=== PATIENT | male | born 1965 | race Caucasian/White ===

== ENCOUNTER 2016-05-24 09:26 | Emergency (ER) | payer MEDICAID, OTHER ==
[~2016-05-24] VITALS: Wt 88.0 kg
[~2016-05-24 09:26] MED LIST: ASPI81TA3 PO; LISI-524 PO
[2016-05-24 10:59] LABS: ADD UMIC NO; URINE BILIRUBIN (Dip) NEGATIVE (NEGATIVE); URINE BLOOD (Dip) NEGATIVE (NEGATIVE); URINE COLOR LT. YELLOW (YELLOW); URINE GLUCOSE (Dip) NEGATIVE (NEGATIVE); URINE KETONES (Dip) NEGATIVE (NEGATIVE); URINE LEUKOCYTE ESTERASE (Dip) NEGATIVE (NEGATIVE); URINE NITRITE (Dip) NEGATIVE (NEGATIVE); URINE TOTAL PROTEIN (Dip) NEGATIVE (NEGATIVE); URINE UROBILINOGEN (Dip) 0.2 E.U./dL (0.1-1.0)
[2016-05-24 11:08] LABS: ADD SCAN DIFF NO
[2016-05-24 11:12] LABS: BASOPHILS % 0.3 % (0.0-2.0); EOSINOPHILS # 0.3 10^3/ul (0.0-0.5); EOSINOPHILS % 2.6 % (0.0-7.0); HEMATOCRIT 45.2 % (42.0-52.0); HEMOGLOBIN 15.5 g/dl (14.0-18.0); LYMPHOCYTES # 1.8 10^3/ul (0.8-2.9); LYMPHOCYTES % 15.5 % (15.0-51.0); MEAN CORPUSCULAR HEMOGLOBIN 29.8 pg (29.0-33.0); MEAN CORPUSCULAR HGB CONC 34.3 g/dl (32.0-37.0); MEAN CORPUSCULAR VOLUME 86.9 fl (82.0-101.0); MEAN PLATELET VOLUME 10.3 fl (7.4-10.4); MONOCYTE # 0.8 10^3/ul (0.3-0.9); MONOCYTES % 6.5 % (0.0-11.0); NEUTROPHIL # 8.8 10^3/ul (1.6-7.5); NEUTROPHILS % 74.4 % (39.0-77.0); PLATELET COUNT 267 10^3/UL (140-415); WHITE BLOOD COUNT 11.8 10^3/ul (4.8-10.8)
[2016-05-24 11:24] LABS: ALBUMIN 4.5 g/dl (3.3-4.9); ALBUMIN/GLOBULIN RATIO 1.73; BILIRUBIN,INDIRECT 0.1 mg/dl (0-1.1); BILIRUBIN,TOTAL 0.1 mg/dl (0.2-1.3); CALCIUM 9.2 mg/dl (8.4-10.2); CREATININE 0.83 mg/dl (0.61-1.24); POTASSIUM 4.3 mmol/L (3.5-5.1); TOTAL PROTEIN 7.1 g/dl (6.1-8.1)
[2016-05-24] MEDS ORDERED: SOD CHLORIDE 0.9% 100 ML ONE (12:18)
[2016-05-24] MEDS ORDERED: IOHEXOL 300MG/ML 150 ML BTL ONE (12:18)
--- NOTE | 2016-05-24 13:13 | RADRPT ---
PROCEDURE: CT Abdomen and Pelvis with contrast. CLINICAL INDICATION: Right lower quadrant pain. TECHNIQUE: CT scan of the abdomen and pelvis with contrast was performed on a multi-detector high- resolution CT scanner. The patient was scanned following the uncomplicated intravenous administrati on of 100 cc of Omnipaque 300. Coronal and sagittal reformatted images were obtained from the axial source images. Images were reviewed on a high-resolution PACS workstation. The total exam CTDI equa ls 20.46 mGy and the total exam DLP equals 1177.47 mGy-cm. One or more of the following dose reduction techniques were used: Automated exposure control. Adjustment of the mA and/or kV according to patient size. Use of iterative reconstruction technique. COMPARISON: None. FINDINGS: CT abdomen: The lung bases are clear. The heart size is normal, without pericardial thickening or effusion. Th e liver is normal in size and density . There are multiple cysts throughout the liver. The spleen i s normal in size and homogeneous in density. The stomach is partially collapsed, but is grossly unr emarkable. The pancreas as visualized is normal. The gallbladder and biliary tree are unremarkable and there is no evidence for biliary dilatation. The adrenal glands are symmetric and normal. Markedly enlarged bilateral kidneys with numerous cortical and parapelvic cysts in keeping with poly cystic kidneys. There are several cysts which demonstrate mild hyperdensity measures up to 2 cm in t he upper pole left kidney on image 3 - 39. The aorta is of normal caliber. Aortic vascular calcifications are present. There is no retroperit barboza lymphadenopathy. The tish hepatis region is clear. The bowel and mesentery, as visualized, are equally unremarkable. CT pelvis: The small bowel loops situated within the pelvis are unremarkable. There is a normal appendix. The u rinary bladder is minimally distended. The pelvic sidewalls and inguinal regions are clear. The si gmoid colon and rectum are remarkable for sigmoid diverticulosis. No mass, lymphadenopathy, or free fluid is seen. No acute inflammation is seen. The bladder is normal. There is mild anterolisthesis of L5 on S1 related to bilateral pars defects. The surrounding osseous structures are unremarkable. No osteolytic or osteoblastic lesion is detected. IMPRESSION: 1. Normal appendix. 2. Markedly enlarged bilateral kidneys replaced by numerous cysts in keeping with polycystic kidney disease. Some of the cysts are dense likely representing proteinaceous/hemorrhagic cyst; however c annot confirm on this single phase study. 3. Multiple liver cysts. 4. Spondylolisthesis/spondylosis at L5-S1. RPTAT: BB .Kirsten Landaverde MD, MD Date Time Electronically viewed and signed by .Kirsten Landaverde MD, on 05/24/2016 13:12 .O/
[2016-05-24] MEDS ORDERED: TRAM50TA2 PO (13:16)
[2016-05-24] MEDS ORDERED: POLY17PO6 PO (13:16)
--- NOTE | 2016-05-24 13:24 | ERD ---
ER Documentation Chief Complaint Date/Time DATE: 05/24/16 TIME: 13:19 Chief Complaint rectal bleed (red) on wiping and in bowl HPI This 42-year-old male complains of intermittent bright red blood per rectum pain with bowel movements over the last week. Denies fevers, vomiting. Some pain in the right side of his abdomen. Denies any palpable lesions in his rectum previous history. The blood is primarily with bowel movements. Patient has a history of poorly controlled hypertension and has not taken his medications in several months. Denies any chest pain or shortness of breath. ROS All systems reviewed and are negative except as per history of present illness. Medications Home Meds Active Scripts Benazepril Hcl* (Lotensin*) 20 Mg Tablet, 20 MG PO DAILY, #30 TAB Prov:KAREL CHAUDHARI MD 05/24/16 Tramadol HCl (Tramadol HCl) 50 Mg Tablet, 50 MG PO Q4 Y for PAIN, #15 TAB Prov:KAREL CHAUDHARI MD 05/24/16 Polyethylene Glycol* (Miralax*) 17 Gm Powd.pack, 17 GM PO DAILY, #30 Prov:KAREL CHAUDHARI MD 05/24/16 Aspirin (Aspirin) 81 Mg Chew, 81 MG PO DAILY, #30 TAB.CHEW Prov:MELANY ALEMAN 09/13/14 Lisinopril* (Zestril*) 10 Mg Tab, 10 MG PO DAILY, #30 3 Refills Prov:MELANY ALEMAN 09/13/14 Allergies Allergies: Coded Allergies: No Known Allergy (Unverified , 09/11/14) PMhx/Soc History of Surgery: Yes (heart catheterization, hernia repair.) Anesthesia Reaction: No Hx Neurological Disorder: No Hx Cardiac Disorders: No Hx Psychiatric Problems: No Hx Miscellaneous Medical Probl: No (HTN, pre-diabetic) Hx Alcohol Use: Yes (last drink 14 months ago) Hx Substance Use: Yes (cocaine use x1 year ending [id number]) Hx Tobacco Use: Yes (12-14 cigarettes daily) Smoking Status: Current every day smoker Physical Exam Vitals Vital Signs Date Time Temp Pulse Resp B/P Pulse Ox O2 Delivery O2 Flow Rate FiO2 05/24/16 13:40 209/122 05/24/16 09:31 97.7 87 20 174/94 98 Physical Exam Const: [] Head: Atraumatic Eyes: Normal Conjunctiva ENT: Normal External Ears, Nose and Mouth. Neck: Full range of motion..~ No meningismus. Resp: Clear to auscultation bilaterally Cardio: Regular rate and rhythm, no murmurs Abd: Soft, non tender, non distended. Normal bowel sounds Skin: No petechiae or rashes Back: No midline or flank tenderness Ext: No cyanosis, or edema Neur: Awake and alert Psych: Normal Mood and Affect Result Diagram: 05/24/16 1035 05/24/16 1035 Results 24 hrs Laboratory Tests Test 05/24/16 10:30 05/24/16 10:35 Urine Color LT. YELLOW Urine Clarity CLEAR Urine pH 5.0 Urine Specific Cameron 1.025 Urine Ketones NEGATIVE Urine Nitrite NEGATIVE Urine Bilirubin NEGATIVE Urine Urobilinogen 0.2 E.U./dL Urine Leukocyte Esterase NEGATIVE Urine Hemoglobin NEGATIVE Urine Glucose NEGATIVE% Urine Total Protein NEGATIVE White Blood Count 11.810^3/ul Red Blood Count 5.2010^6/ul Hemoglobin 15.5g/dl Hematocrit 45.2% Mean Corpuscular Volume 86.9fl Mean Corpuscular Hemoglobin 29.8pg Mean Corpuscular Hemoglobin Concent 34.3g/dl Red Cell Distribution Width 13.0% Platelet Count 98347^3/UL Mean Platelet Volume 10.3fl Neutrophils % 74.4% Lymphocytes % 15.5% Monocytes % 6.5% Eosinophils % 2.6% Basophils % 0.3% Nucleated Red Blood Cells % 0.0/100WBC Neutrophils # 8.810^3/ul Lymphocytes # 1.810^3/ul Monocytes # 0.810^3/ul Eosinophils # 0.310^3/ul Basophils # 0.010^3/ul Nucleated Red Blood Cells # 0.010^3/ul Sodium Level 140mmol/L Potassium Level 4.3mmol/L Chloride Level 107mmol/L Carbon Dioxide Level 26mmol/L Anion Gap 11 Blood Urea Nitrogen 17mg/dl Creatinine 0.83mg/dl Glucose Level 113mg/dl Calcium Level 9.2mg/dl Total Bilirubin 0.1mg/dl Direct Bilirubin 0.00mg/dl Indirect Bilirubin 0.1mg/dl Aspartate Amino Transf (AST/SGOT) 24IU/L Alanine Aminotransferase (ALT/SGPT) 35IU/L Alkaline Phosphatase 89IU/L Total Protein 7.1g/dl Albumin 4.5g/dl Globulin 2.60g/dl Albumin/Globulin Ratio 1.73 Lipase 35U/L Current Medications Medications (Trade) Dose Ordered Sig/Lynne Route PRN Reason Start Time Stop Time Status Last Admin Dose Admin IV Flush 10 ml 10 ml STK-MED ONCE .ROUTE 05/24/16 12:18 05/24/16 12:19 DC 05/24/16 12:27 Sodium Chloride (NS) 100 ml @ ud STK-MED ONCE .ROUTE 05/24/16 12:18 05/24/16 12:19 DC 05/24/16 12:32 Iohexol (Omnipaque 300mg/ ml) 150 ml STK-MED ONCE .ROUTE 05/24/16 12:18 05/24/16 12:19 DC 05/24/16 12:33 Nicardipine HCl (Cardene) 30 mg ONCE ONCE PO 05/24/16 14:00 05/24/16 14:01 05/24/16 13:43 Benazepril HCl (Lotensin) 20 mg ONCE ONCE PO 05/24/16 14:00 05/24/16 14:01 Procedures/MDM CBC shows white blood cell count 11.8, CMP is normal. Urine is negative. The uncertain cause of symptoms a CT abdomen pelvis with IV contrast was performed showed multiple renal cysts and hepatic cysts consistent with polycystic kidney disease. There is no acute findings per the radiologist. Patient was stable throughout the ED course. Patient presents with bright red blood per rectum which appears stable with no evidence of anemia, acute abdomen, obstruction. Right-sided pain could be due to hemorrhagic cyst. Patient was not aware he had any history of cystic kidney disease. Patient will be provided with resort reports and instruction to follow-up his primary doctor and consider nephrology for further evaluation. Return for fevers, vomiting, new or worsening symptoms otherwise she will be treated with tramadol and stool softeners. The patient was stable with no new complaints during the ER course. Clinically, there is no current evidence to suggest meningitis, sepsis, acute abdomen, pneumonia, acute coronary syndrome, pulmonary embolism, or any other emergent condition appearing to require further evaluation or hospitalization. The patient should certainly return for any new or worsening symptoms per the aftercare instructions. They should otherwise follow-up with her primary care doctor for reevaluation this week. Patient's blood pressure was noted to be elevated at triage as well as prior to discharge. Patient was given Cardene p.o. and Lotensin 20 mg by mouth. Patient will refer to nephrology and will be resumed on Lotensin 20 mg per day. Signs or symptoms do not suggest any current endorgan damage. Departure Diagnosis: Primary Impression: Rectal hemorrhage Condition: Stable Patient Instructions: Rectal Bleed, Stable [facility] Usted se ortiz hecho un examen mdico de control que le indica que no est en yordy condicin que requiera tratamiento urgente en el Departamento de Emergencia. Un estudio ms profundo y el tratamiento de squires condicin pueden esperar sin ningn riesgo hasta que usted sea atendida/o en el consultorio de squires mdico o yordy cl alia. Es responsabilidad suya arreglar yordy helene para el seguimiento del peter. MANEJO DE CONDICIONES NO URGENTES EN EL FUTURO 1) Si usted tiene un mdico de atencin primaria: Usted debera llamar a squires mdico de atencin primaria antes de venir al departamento de emergencia. Despus de las horas de consultorio, squires doctor o squires asociado/a est disponible por telfono. El mdico o enfermero de kaity en el servicio telefnico puede asesorarle por gema medio para atender el problema, o peter contrario se puede programar yordy helene. 2) Si usted no tiene un mdico de atencin primaria: Llame al mdico o clnica de referencia que aparece abajo dalila las horas de consultorio para hacer yordy helene para que le vean. CLINICAS: [facility] [phone] [facility] [phone] [facility] 915 [phone] [facility] [phone] [place] [id number] [phone] [facility]. [phone] [address] Additional Instructions: HAY MUCHO CYSTES EN RINONES/ HIGADO PER NO HAY ENFERMA EMERGENCIA O NUEVA. VAMOS A TRATAR PARA ESTRENEMIENTO. Cheque otro vez con squires doctor primario en el proximo chaudhary or regresa para mas o nueva simptomas. KAREL CHAUDHARI MD May 24, 2016 13:24
[2016-05-24] MEDS ORDERED: BENA20TA65 PO (13:43)
[2016-05-24] MEDS ORDERED: BENAZEPRIL 20 MG TAB PO ONE (14:00)
[2016-05-24] MEDS ORDERED: NICARDipine HCL 30 MG CAPSULE PO ONE (14:00)
[2016-05-24 14:02] VITALS: BP 182/112
== END 2016-05-24 14:29 | disposition home or self-care (01) ==
LOC: FTE 09:26
DX: K62.5 Hemorrhage of anus and rectum (principal); I10 Essential (primary) hypertension; F17.210 Nicotine dependence, cigarettes, uncomplicated
CPT/HCPCS: 36415; 74177; 80053; 81003; 83690; 85025; Q9967; Z7502; Z7610

== ENCOUNTER 2018-02-06 10:55 | Inpatient (IN) | payer MEDICAID, OTHER ==
[~2018-02-06] VITALS: Ht 154.9 cm; Wt 88.8 kg
[~2018-02-06 10:55] MED LIST changes: +ASPI-831 PO; -ASPI81TA3 PO; +BENA20TA65 PO; +POLY17PO6 PO; +TRAM50TA2 PO
[2018-02-06] MEDS ORDERED: SOD CHLORIDE 0.9% 1,000 ML IV STA (11:29)
[2018-02-06] MEDS ORDERED: ASPIRIN 325 MG TAB PO STA (11:29)
[2018-02-06] MEDS ORDERED: NICARDipine HCL 30 MG CAPSULE PO ONE ×2 (11:30→12:30)
--- NOTE | 2018-02-06 11:32 | ERD ---
ER Documentation Chief Complaint Chief Complaint ELEVATED BP, HEADACHE, DIZZINESS, NAUSEA HPI This is a 52-year-old male who is here for hypertension and left-sided face arm and leg weakness and tingling onset yesterday morning around 7 AM. Patient ran out of his blood pressure meds. He is also complaining of diffuse mild headache with dizziness. No chest pain no shortness of breath. There is visual change, swallowing change or speech change. ROS All systems reviewed and are negative except as per history of present illness. Medications Home Meds Active Scripts Benazepril Hcl* (Lotensin*) 20 Mg Tablet, 20 MG PO DAILY, #30 TAB Prov:KAREL CHAUDHARI MD 05/24/16 Tramadol HCl (Tramadol HCl) 50 Mg Tablet, 50 MG PO Q4 PRN for PAIN, #15 TAB Prov:KAREL CHAUDHARI MD 05/24/16 Polyethylene Glycol* (Miralax*) 17 Gm Powd.pack, 17 GM PO DAILY, #30 Prov:KAREL CHAUDHARI MD 05/24/16 Aspirin (Aspirin) 81 Mg Chew, 81 MG PO DAILY, #30 TAB.CHEW Prov:MELANY ALEMAN 09/13/14 Lisinopril* (Zestril*) 10 Mg Tab, 10 MG PO DAILY, #30 3 Refills Prov:MELAYN ALEMAN 09/13/14 Allergies Allergies: Coded Allergies: No Known Allergy (Unverified , 02/06/18) PMhx/Soc History of Surgery: Yes (heart catheterization, hernia repair.) Anesthesia Reaction: No Hx Neurological Disorder: No Hx Cardiac Disorders: No Hx Psychiatric Problems: No Hx Miscellaneous Medical Probl: No (HTN, pre-diabetic) Hx Alcohol Use: Yes (last drink 14 months ago) Hx Substance Use: Yes (cocaine use x1 year ending [id number]) Hx Tobacco Use: Yes (12-14 cigarettes daily) FmHx Family History: No coronary disease Physical Exam Vitals Vital Signs Date Temp Pulse Resp B/P (MAP) Pulse Ox O2 O2 Flow FiO2 Time Delivery Rate 02/06/18 79 16 134/100 98 Room Air 13:54 (111) 02/06/18 188/129 13:01 (148) 02/06/18 76 18 188/129 98 Room Air 12:36 (148) 02/06/18 98.6 94 18 227/132 97 10:58 (163) Physical Exam Const: Well-developed, well-nourished Head: Atraumatic, normocephalic Eyes: Normal Conjunctiva, PERRLA, EOMI, normal sclera, no nystagmus ENT: Normal External Ears, Nose and Mouth, moist mucus membranes. Neck: Full range of motion. No meningismus, no lymphadenopathy. Resp: Clear to auscultation bilaterally, no wheezing, rhonchi, rales Cardio: Regular rate and rhythm, no murmurs, S1 S2 present Abd: Soft, non tender x 4, non distended. Normal bowel sounds, no guarding or rebound, no pulsitile abdominal masses or bruits Skin: No petechiae or rashes, no ecchymosis , no maculopapular rash Back: No midline or flank tenderness Ext: No cyanosis, or edema, FROM x 4, normal inspection, neurovascul laisha intact x 4 Neur: Awake and alert, left arm and leg subjective heaviness with decreased sensation, face as well Psych: Normal Mood and Affect Result Diagram: 02/06/1892902/06/18929 Results 24 hrs Laboratory Tests Test 02/06/18 05:40 02/06/18 09:30 Urine Opiates Screen Negative Urine Barbiturates Negative Urine Amphetamines Screen Negative Urine Benzodiazepines Screen Negative Urine Cocaine Screen Negative Urine Cannabinoids Negative White Blood Count 11.1 10^3/ul Red Blood Count 5.47 10^6/ul Hemoglobin 15.9 g/dl Hematocrit 47.4 % Mean Corpuscular Volume 86.7 fl Mean Corpuscular Hemoglobin 29.1 pg Mean Corpuscular Hemoglobin Concent 33.5 g/dl Red Cell Distribution Width 12.9 % Platelet Count 251 10^3/UL Mean Platelet Volume 10.1 fl Immature Granulocytes % 0.500 % Neutrophils % 77.6 % Lymphocytes % 13.8 % Monocytes % 6.1 % Eosinophils % 1.5 % Basophils % 0.5 % Nucleated Red Blood Cells % 0.0 /100WBC Immature Granulocytes # 0.060 10^3/ul Neutrophils # 8.6 10^3/ul Lymphocytes # 1.5 10^3/ul Monocytes # 0.7 10^3/ul Eosinophils # 0.2 10^3/ul Basophils # 0.1 10^3/ul Nucleated Red Blood Cells # 0.0 10^3/ul Prothrombin Time 13.2 Sec Prothrombin Time Ratio 1.0 INR International Normalized Ratio 0.99 Activated Partial Thromboplast Time 34.9 Sec Sodium Level 143 mmol/L Potassium Level 4.1 mmol/L Chloride Level 105 mmol/L Carbon Dioxide Level 26 mmol/L Anion Gap 12 Blood Urea Nitrogen 14 mg/dl Creatinine 0.91 mg/dl Est Glomerular Filtrat Rate mL/min > 60 mL/min Glucose Level 134 mg/dl Hemoglobin A1c 5.8 % Calcium Level 9.1 mg/dl Total Bilirubin 0.2 mg/dl Direct Bilirubin 0.00 mg/dl Indirect Bilirubin 0.2 mg/dl Aspartate Amino Transf (AST/SGOT) 25 IU/L Alanine Aminotransferase (ALT/SGPT) 23 IU/L Alkaline Phosphatase 93 IU/L Troponin I < 0.012 ng/ml Total Protein 7.7 g/dl Albumin 4.4 g/dl Globulin 3.30 g/dl Albumin/Globulin Ratio 1.33 Triglycerides Level 353 mg/dl Cholesterol Level 235 mg/dl LDL Cholesterol, Calculated 131 mg/dl HDL Cholesterol 33 mg/dl Cholesterol/HDL Ratio 7.1 RATIO Current Medications Medications Dose Sig/Lynne Start Time Status Last (Trade) Ordered Route PRN Stop Time Admin Dose Reason Admin Nicardipine 30 mg ONCE ONCE 02/06/18 DC 02/06/18 HCl PO 11:30 11:57 (Cardene) 02/06/18 11:31 Sodium 1,000 ml @ Q1H STAT 02/06/18 DC 02/06/18 Chloride 1,000 mls/hr IV 11:29 11:56 02/06/18 12:28 Aspirin 325 mg ONCE STAT 02/06/18 DC 02/06/18 (Aspirin) PO 11:29 11:56 02/06/18 11:32 Nicardipine 30 mg ONCE ONCE 02/06/18 DC 02/06/18 HCl PO 12:30 12:50 (Cardene) 02/06/18 12:31 Procedures/MDM EKG: Rate/Rhythm: Normal sinus rhythm heart rate 74 with LVH QRS, ST, QT: NORMAL SC, QRS, QT] Impression: Abnormal EKG PROCEDURE: CT Brain without contrast. CLINICAL INDICATION: Stroke TECHNIQUE: CT scan of the brain was performed on a multidetector high- resolution CT scan. Axial imaging was obtained of the brain without contrast administration. Coronal and sagittal reformatted images were obtained from the axial source images. Standard CT scan of the head without contrast protocols were performed. The total exam CTDI equals 38.54 mGy and the total exam DLP equals 554.95 mGy-c m. One or more of the following dose reduction techniques were used: - Automated exposure control. - Adjustment of the mA and/or kV according to patient size. Use of iterative reconstruction technique. Dicom images are available COMPARISON: MR brain 09/11/[address] head 09/11/2014 FINDINGS: No change of the 6 x 5 x 3 cm retrocerebellar cystic mass consistent with an arachnoid cyst. No other intracranial masses. Ventricular system and peripheral CSF spaces are otherwise unremarkable and consistent with the patient's age. No evidence of intracranial hemorrhages. No midline shift. The hare-white matter differentiation is unremarkable. The bones of the calvarium are intact. Visu alized paranasal sinuses and mastoids are unremarkable. IMPRESSION: 1. No significant change. 2. Again noted is a retrocerebellar arachnoid cyst. No other intracranial masses. 3. No evidence of intracranial hemorrhages. 4. No midline shift. Addendum: Dr. Mejia was telephoned this results on 02/06/2018 at 1215 hours. RPTAT:AAJJ Physician Lucita Date Time Electronically viewed and signed by Physician Lucita on 02/06/2018 12:22 BM/ CC: SANDEEP MEJIA DO [id number] Patient is not a TPA candidate because of duration of onset was at 7 AM yesterday and says he woke with symptoms. The patient is having hypertensive symptoms of left-sided arm and leg numbness and heaviness. His blood pressure is elevated and is been treated here with Cardene p.o. x2. Patient has been admitted for hypertensive control and strokelike symptoms to the left side. Critical Care Time: 30 minutes Treatments/Evaluations: Close monitoring and treatment of unstable vital signs, cardiorespiratory, and neurologic status, while maintaining tight balance of fluid, respiratory, and cardiac interventions. This time includes discussing the case with the patient and the patient's family. This time does not include all procedures stated elsewhere in this record. This time also includes reviewing old records, labs and radiological studies. This time includes examining and re- examining the patient. Additionally, this time also includes arranging care with admitting and consulting physicians. Departure Diagnosis: Primary Impression: Hypertensive crisis Additional Impression: CVA (cerebral vascular accident) CVA mechanism: unspecified Qualified Codes: I63.9 - Cerebral infarction, unspecified Condition: Stable SANDEEP MEJIA DO Feb 06, 2018 11:32
--- NOTE | 2018-02-06 15:29 | HP ---
Date/Time of Note Date/Time of Note DATE: 02/06/18 TIME: 15:29 Assessment/Plan VTE Prophylaxis SCD applied (from Nsg): Yes Pharmacological prophylaxis: NA/contraindicated Pharm contraindication: other (CVA rule out) Lines/Catheters IV Catheter Type (from Nrsg): Peripheral IV Assessment/Plan Assessment/Plan 1. Hypertensive emergency - Patient has been noncompliant with medications at home given he ran out in march - With numbness and tingling left face, UE, and LE. Will rule out CVA - Will allow for permissive HTN up to 220/110 for the next 24 hours. PRNs if exceed allowed BP - Will check TSH 2. Left sided numbness - CT head negative for acute issues - Out of TPA window since sx started over 24 hours ago - Will allow for permissive HTN <220/110 - statin and aspirin - Will order MRI/MRA head, carotid doppler and ECHO - Neurology consultation placed for further recommendations 3. HLD - TG and Chol elevated - on statin and will need diet modification after discharge - will start on fish oil as well prior to d/c 4. Tobacco abuse - smoking cessation provided - nicotine patch while inhouse 5. Headache - supportive care - CT head negative 6. Diet - Cardiac 7. DVT ppx - SCD 8. GI ppx - PPI 9. Code status - Full code 10. Disposition - Admit to telemetry for CVA workup Result Diagram: 02/06/18 0930 02/06/18 0930 Results 24hrs Laboratory Tests Test 02/06/18 05:40 02/06/18 09:30 Urine Opiates Screen Negative Urine Barbiturates Negative Urine Amphetamines Screen Negative Urine Benzodiazepines Screen Negative Urine Cocaine Screen Negative Urine Cannabinoids Negative White Blood Count 11.1 H Red Blood Count 5.47 Hemoglobin 15.9 Hematocrit 47.4 Mean Corpuscular Volume 86.7 Mean Corpuscular Hemoglobin 29.1 Mean Corpuscular Hemoglobin Concent 33.5 Red Cell Distribution Width 12.9 Platelet Count 251 Mean Platelet Volume 10.1 Immature Granulocytes % 0.500 H Neutrophils % 77.6 H Lymphocytes % 13.8 L Monocytes % 6.1 Eosinophils % 1.5 Basophils % 0.5 Nucleated Red Blood Cells % 0.0 Immature Granulocytes # 0.060 H Neutrophils # 8.6 H Lymphocytes # 1.5 Monocytes # 0.7 Eosinophils # 0.2 Basophils # 0.1 Nucleated Red Blood Cells # 0.0 Prothrombin Time 13.2 Prothrombin Time Ratio 1.0 INR International Normalized Ratio 0.99 Activated Partial Thromboplast Time 34.9 Sodium Level 143 Potassium Level 4.1 Chloride Level 105 Carbon Dioxide Level 26 Anion Gap 12 Blood Urea Nitrogen 14 Creatinine 0.91 Est Glomerular Filtrat Rate mL/min > 60 Glucose Level 134 Hemoglobin A1c 5.8 Calcium Level 9.1 Total Bilirubin 0.2 Direct Bilirubin 0.00 Indirect Bilirubin 0.2 Aspartate Amino Transf (AST/SGOT) 25 Alanine Aminotransferase (ALT/SGPT) 23 Alkaline Phosphatase 93 Troponin I < 0.012 Total Protein 7.7 Albumin 4.4 Globulin 3.30 H Albumin/Globulin Ratio 1.33 Triglycerides Level 353 H Cholesterol Level 235 H LDL Cholesterol, Calculated 131 HDL Cholesterol 33 Cholesterol/HDL Ratio 7.1 HPI/ROS Admit Date/Time Admit Date/Time 02/06/18 1600 Hx of Present Illness 52 yo M with PMH HTN and HLD presented to ED complaining of dizziness, left sided weakness and tingling from face to leg, nausea, and severe headache since yesterday at 7am. Patient states he ran out of his BP medication due to insurance and last took medications in March. Patient was evaluated in ED and CT scan was performed with no acute abnormalities. He was given medications for BP control but weakness did not resolve. Patient was still complaining of headache with dizziness and abdominal discomfort with associated nausea. Patient did admit to mild chest discomfort which was worse with deep inhalation. Admits to nonproductive cough. Denies any LOC, palpitations, constipation, diarrhea, or right sided weakness or tingling. ROS All 12 systems reviewed and pertinent positives as per HPI. All others nega tive. Constitutional: nausea; No chills, No fatigue Eyes: discharge, visual change ENT: No congestion Respiratory: cough, shortness of breath; No sputum, No wheezing Cardiovascular: chest pain, lightheadedness; No edema, No palpitations Gastrointestinal: pain; No constipation, No diarrhea, No nausea, No vomiting Genitourinary: dysuria; No flank pain Musculoskeletal: no complaints Skin: No laceration, No rash Neurologic: dizziness, headache, other (left sided numbness and tingling) Endocrine: no complaints Lymphatic: no complaints Psychological: nl mood/affect Immunologic: no complaints PMH/Family/Social Past Medical History Medical History: high cholesterol, hypertension Medications Current Medications Ondansetron HCl (Zofran Inj) 4 mg ER BRIDGE PRN IV NAUSEA AND/OR VOMITING; Start 02/06/18 at 15:30; Stop 02/07/18 at 15:29 Acetaminophen (Tylenol Tab) 650 mg ER BRIDGE PRN PO MILD PAIN(1-3)OR ELEVATED TEMP; Start 02/06/18 at 15:30; Stop 02/07/18 at 15:29 Coded Allergies: No Known Allergy (Unverified , 02/06/18) Past Surgical History Past Surgical Hx: other (hernia repair) Family History Significant Family History: no pertinent family hx Social History Alcohol Use: none Smoking Status: Current every day smoker (8-10 cigarettes daily) Drug Use: cocaine (past history) Exam/Review of Systems Vital Signs Vitals Vital Signs Date Temp Pulse Resp B/P (MAP) Pulse Ox O2 O2 Flow FiO2 Time Delivery Rate 02/06/18 79 16 134/100 98 Room Air 13:54 (111) 02/06/18 98.6 10:58 Exam Exam General: distress secondary to headache. answering questions appropriately. HEENT: NC/AT. PERRL. EOM intact Chest: nontender to palpation CVS: S1, S2, regular rate and rhythm. no murmurs Lungs: Clear to auscultation bilaterally. no wheezing or rhonchi Abd: soft, mildly tender to palpation, nondistended. +BS all quadrants. no rebound or guarding Ext: moving all extremities. no cyanosis, clubbing or edema Neuro: CN 2-12 intact. motor strength 5/5 UE and LE bilaterally. sensation diminished left side of face, left arm and left leg. normal in right Skin: no rashes or lesions appreciated. MIKE GARVEY MD Feb 06, 2018 15:29
[2018-02-06] MEDS ORDERED: ONDANSETRON 4 MG INJ IV PRN ×2 (15:30)
[2018-02-06] MEDS ORDERED: ACETAMINOPHEN 325 MG TAB PO PRN ×2 (15:30)
[2018-02-06] MEDS ORDERED: NACL 0.9% 3 ML SYG IV SCH (15:30)
[2018-02-06] MEDS ORDERED: MAGNESIUM HYDROXIDE 30ML CUP PO PRN (15:30)
[2018-02-06] MEDS ORDERED: hydrALAzine 20 MG INJ IV PRN (15:30)
[2018-02-06] MEDS ORDERED: traMADol 50 MG TAB PO PRN (15:30)
[2018-02-06] MEDS ORDERED: NITROGLYCERIN (SL) 0.4 MG TAB SL PRN (15:30)
[2018-02-06] MEDS ORDERED: DOCUSATE SODIUM 100 MG CAP PO PRN (15:30)
[2018-02-06 16:15] VITALS: PULSE 76
[2018-02-06 16:30] VITALS: BP 180/86; PULSE 70; RESP 20; Ht 154.9 cm; Wt 88.8 kg
[2018-02-06] MEDS ORDERED: LORAZEPAM 4 MG/ML VIAL IV PRN (16:30)
[2018-02-06] MEDS ORDERED: MECLIZINE 25 MG TAB PO PRN (16:30)
[2018-02-06] MEDS ORDERED: LABETALOL HCL 20MG INJ IV PRN (16:30)
[2018-02-06] MEDS: NICOTINE (14 MG/24 HR) PATCH TRANSDERM SCH (16:51)
--- NOTE | 2018-02-06 18:34 | NUR ---
EOSS Pt is alert and oriented x 4 , ambulates with steady gait. With headache given Tylenol, numbness on left face, left arm,left leg. SR on the monitor . MRI pending
[2018-02-06 20:00] VITALS: BP 171/96; PULSE 69; RESP 18
[2018-02-06] MEDS: ATORVASTATIN 40 MG TAB PO SCH (20:04)
[2018-02-06 23:35] VITALS: PULSE 63
[2018-02-06 23:48] VITALS: BP 192/115
[2018-02-07] VITALS (10 sets, daily range): BP systolic 138–184; BP diastolic 82–116; PULSE 55–80; RESP 16–20
[2018-02-07] MEDS: PANTOPRAZOLE (EC) 40 MG TAB PO SCH (06:02)
[2018-02-07] MEDS ORDERED: AMLODIPINE 5 MG TAB PO SCH (09:00)
[2018-02-07] MEDS ORDERED: ENOXAPARIN 40 MG/0.4 ML SYG SC SCH (09:00)
[2018-02-07] MEDS ORDERED: BENAZEPRIL 20 MG TAB PO SCH (09:00)
[2018-02-07] MEDS: NICOTINE (14 MG/24 HR) PATCH TRANSDERM SCH (09:26)
[2018-02-07] MEDS: POLYETHYLENE GLYCOL 17 GM PACKET PO SCH (09:26)
[2018-02-07] MEDS: ASPIRIN 81 MG TAB PO SCH (09:26)
[2018-02-07] MEDS ORDERED: KETOROLAC 30 MG INJ IV STA (09:40)
--- NOTE | 2018-02-07 12:54 | PN ---
Date/Time of Note Date/Time of Note DATE: 02/07/18 TIME: 12:54 Assessment/Plan VTE Prophylaxis Risk score (from [facility])>0 risk: 1 SCD applied (from [facility]): No SCD contraindicated: patient refusal Pharmacological prophylaxis: NA/contraindicated Pharm contraindication: bleeding Lines/Catheters IV [facility] [place] Lock Urinary Cath still in place: No Assessment/Plan Assessment/Plan 1. Hypertensive emergency - BP 130-140 without medications - Improving numbness and tingling left face, UE, and LE 2. Left sided numbness, rule out CVA - CT head negative for acute issues and Carotids without stenosis - MRI pending - statin and aspirin - Neurology consultation placed for further recommendations 3. HLD - TG and Chol elevated - on statin and will need diet modification after discharge - will start on fish oil as well prior to d/c 4. Tobacco abuse - smoking cessation provided - nicotine patch while inhouse 5. Headache - supportive care - CT head negative 6. Disposition - Awaiting MRI results - PT/OT on board for evaluation Result Diagram: 02/07/18 0500 02/07/18 0500 Results 24hrs Laboratory Tests Test 02/06/18 17:26 02/07/18 05:00 Urine Color STRAW Urine Clarity CLEAR Urine pH 7.0 Urine Specific [place] 1.010 Urine Ketones NEGATIVE Urine Nitrite NEGATIVE Urine Bilirubin NEGATIVE Urine Urobilinogen NEGATIVE Urine Leukocyte Esterase NEGATIVE Urine Hemoglobin NEGATIVE Urine Glucose NEGATIVE Urine Total Protein NEGATIVE White Blood Count 10.5 Red Blood Count 5.15 Hemoglobin 15.1 Hematocrit 44.8 Mean Corpuscular Volume 87.0 Mean Corpuscular Hemoglobin 29.3 Mean Corpuscular Hemoglobin Concent 33.7 Red Cell Distribution Width 13.0 Platelet Count 231 Mean Platelet Volume 10.2 Immature Granulocytes % 0.700 H Neutrophils % 64.0 Lymphocytes % 23.8 Monocytes % 7.6 Eosinophils % 3.4 Basophils % 0.5 Nucleated Red Blood Cells % 0.0 Immature Granulocytes # 0.070 H Neutrophils # 6.7 Lymphocytes # 2.5 Monocytes # 0.8 Eosinophils # 0.4 Basophils # 0.1 Nucleated Red Blood Cells # 0.0 Sodium Level 140 Potassium Level 3.9 Chloride Level 106 Carbon Dioxide Level 27 Anion Gap 7 Blood Urea Nitrogen 15 Creatinine 0.85 Est Glomerular Filtrat Rate mL/min > 60 Glucose Level 112 Calcium Level 8.4 Magnesium Level 2.2 Subjective 24 Hr Interval Summary Free Text/Dictation Patient states he still with headache but numbness of left side has improved. No acute overnight events. Exam/Review of Systems Vital Signs Vitals Vital Signs Date Temp Pulse Resp B/P (MAP) Pulse Ox O2 O2 Flow FiO2 Time Delivery Rate 02/07/18 98.6 67 18 138/100 95 11:09 (113) 02/07/18 Room Air 04:00 Intake and Output 02/06/18 02/06/18 02/07/18 1515:00 23:00 07:00 IntakeIntake Total 150 ml 400 ml OutputOutput Total 300 ml BalanceBalance -150 ml 400 ml Exam General: mild distress secondary to headache CVS: S1, S2, regular rate and rhythm. no murmurs Lungs: Clear to auscultation bilaterally. no wheezing or rhonchi Abd: soft, nontender to palpation, nondistended. +BS all quadrants. no rebound or guarding Ext: moving all extremities. no cyanosis, clubbing or edema Neuro: CN 2-12 intact. motor strength 5/5 UE and LE bilaterally. sensation diminished left side of face, left arm and left leg. normal in right Skin: no rashes or lesions appreciated. Medications Medications Current Medications Aspirin (Aspirin) 81 mg DAILY PO Last administered on 02/07/18at 09:26; Admin Dose 81 MG; Start 02/07/18 at 09:00 Polyethylene Glycol (Miralax) 17 gm DAILY PO Last administered on 02/07/18at 09:26; Admin Dose 17 GM; Start 02/07/18 at 09:00 Tramadol HCl (Ultram) 50 mg Q4 PRN PO PAIN; Start 02/06/18 at 15:30 Hydralazine HCl (Apresoline) 10 mg Q4H PRN IV SBP >220/110; Start 02/06/18 at 15:30 IV Flush (NS 3 ml) 3 ml PER PROTOCOL IV ; Start 02/06/18 at 15:30 Ondansetron HCl (Zofran Inj) 4 mg Q6H PRN IV NAUSEA AND/OR VOMITING; Start 02/06/18 at 15:30 Nitroglycerin (Nitroglycerin (Sl Tab) 0.4 Mg) 1 tab Q5M PRN SL CHEST PAIN; Start 02/06/18 at 15:30 Acetaminophen (Tylenol Tab) 650 mg Q6H PRN PO PAIN LEVEL 1-3 OR FEVER Last administered on 02/06/18at 16:46; Admin Dose 650 MG; Start 02/06/18 at 15:30 Docusate Sodium (Colace) 100 mg Q12H PRN PO CONSTIPATION; Start 02/06/18 at 15:30 Magnesium Hydroxide (Milk Of Mag) 30 ml DAILY PRN PO CONSTIPATION; Start 02/06/18 at 15:30 Pantoprazole (Protonix Tab) 40 mg DAILY@06 PO Last administered on 02/07/18at 06:02; Admin Dose 40 MG; Start 02/07/18 at 06:00 Labetalol HCl (Labetalol) 10 mg Q4H PRN IV SBP >220/110; Start 02/06/18 at 16:30 Lorazepam (Ativan) 1 mg ONCE PRN IV prior to MRI; Start 02/06/18 at 16:30; Stop 02/07/18 at 16:29 Atorvastatin Calcium (Lipitor) 40 mg HS PO Last administered on 02/06/18at 20:04; Admin Dose 40 MG; Start 02/06/18 at 21:00 Meclizine HCl (Antivert) 25 mg TID PRN PO dizziness; Start 02/06/18 at 16:30 Nicotine (Nicoderm 14 Mg/ 24hr) 1 patch DAILY TRANSDERM Last administered on 02/07/18at 09:26; Admin Dose 1 PATCH; Start 02/06/18 at 17:00 MIKE GARVEY MD Feb 07, 2018 12:54
[2018-02-07] MEDS ORDERED: DIPHENHYDRAMINE 50 MG INJ IV PRN (14:30)
--- NOTE | 2018-02-07 14:46 | CONS ---
Assessment/Plan Assessment/Plan Assessment/Plan 52 yo M with hx of HTN, HLD, medication noncompliance and other comorbidities who p/w headache, L hemiparesis and hemisensory loss... for which neurology is consulted. Most clinically concerning for stroke. Hypertensive urgency is a diagnosis of exclusion. Complicated migraine is less likely. CTH is without acute intracranial pathology. CUS is normal. P: Await MRI, MRA H/N for further characterization Await echo Cont ASA/statin pending the above Permissive HTN up to 220/110 pending the MRI results Cont medical management per primary PT/OT as necessary Will follow clinically Result Diagram: 02/07/18 0500 02/07/18 0500 Results 24hrs Laboratory Tests Test 02/06/18 17:26 02/07/18 05:00 Urine Color STRAW Urine Clarity CLEAR Urine pH 7.0 Urine Specific [place] 1.010 Urine Ketones NEGATIVE Urine Nitrite NEGATIVE Urine Bilirubin NEGATIVE Urine Urobilinogen NEGATIVE Urine Leukocyte Esterase NEGATIVE Urine Hemoglobin NEGATIVE Urine Glucose NEGATIVE Urine Total Protein NEGATIVE White Blood Count 10.5 Red Blood Count 5.15 Hemoglobin 15.1 Hematocrit 44.8 Mean Corpuscular Volume 87.0 Mean Corpuscular Hemoglobin 29.3 Mean Corpuscular Hemoglobin Concent 33.7 Red Cell Distribution Width 13.0 Platelet Count 231 Mean Platelet Volume 10.2 Immature Granulocytes % 0.700 H Neutrophils % 64.0 Lymphocytes % 23.8 Monocytes % 7.6 Eosinophils % 3.4 Basophils % 0.5 Nucleated Red Blood Cells % 0.0 Immature Granulocytes # 0.070 H Neutrophils # 6.7 Lymphocytes # 2.5 Monocytes # 0.8 Eosinophils # 0.4 Basophils # 0.1 Nucleated Red Blood Cells # 0.0 Sodium Level 140 Potassium Level 3.9 Chloride Level 106 Carbon Dioxide Level 27 Anion Gap 7 Blood Urea Nitrogen 15 Creatinine 0.85 Est Glomerular Filtrat Rate mL/min > 60 Glucose Level 112 Calcium Level 8.4 Magnesium Level 2.2 Consultation Date/Type/Reason Admit Date/Time 02/06/18 1600 Type of Consult Neurology Reason for Consultation eval for stroke Requesting Provider: MIKE GARVEY MD Date/Time of Note DATE: 02/07/18 TIME: 14:46 Hx of Present Illness This is a 52 yo M with hx of HTN, HLD, medication noncompliance and other comorbidities who presented to the ED with c/o dizzines, L sided weakness and tingling, nausea and headache. History was obtained from both pt and chart review. It is elsewhere noted: Hx of Present Illness 52 yo M with PMH HTN and HLD presented to ED complaining of dizziness, left sided weakness and tingling from face to leg, nausea, and severe headache since yesterday at 7am. Patient states he ran out of his BP medication due to insurance and last took medications in March. Patient was evaluated in ED and CT scan was performed with no acute abnormalities. He was given medications for BP control but weakness did not resolve. Patient was still complaining of headache with dizziness and abdominal discomfort with associated nausea. Patien t did admit to mild chest discomfort which was worse with deep inhalation. Admits to nonproductive cough. Denies any LOC, palpitations, constipation, diarrhea, or right sided weakness or tingling. negative unless noted otherwise in HPI Exam/Review of Systems Vital Signs Vitals Vital Signs Date Temp Pulse Resp B/P (MAP) Pulse Ox O2 O2 Flow FiO2 Time Delivery Rate 02/07/18 75 12:55 02/07/18 98.6 18 138/100 95 11:09 (113) 02/07/18 Room Air 04:00 Intake and Output 02/06/18 02/06/18 02/07/18 1414:59 22:59 06:59 IntakeIntake Total 150 ml 400 ml OutputOutput Total 300 ml BalanceBalance -150 ml 400 ml Exam PE: Gen Appearance: No Apparent Distress HEENT: Normocephalic Cardiovascular: Regular rate Lungs: Clear bilaterally Abdomen: Soft Extremities: Dry NE: The patient was alert and oriented.. Language was normal. Fund of knowledge was normal. Pupils were equal and reactive to light. There was no afferent pupillary defect. Visual marquez were normal. Funduscopic examination was limited. Extra-ocular movements were full. Ptosis was absent. There was no nystagmus. Facial sensation was normal. Face was symmetric with normal strength. Hearing was intact. Palate movements were normal. Neck strength was normal. There was normal tongue bulk and speed of movement. Tone was normal. Muscle bulk was normal. I did not see fasciculations. Arms and legs were strong to confrontation, though slightly weaker on the L. Vibration sensation and sensation to light touch was diminished on the L. Temperature and pinprick sensation was normal. Rapid alternating movements were normal. There was no dysmetria. There was no intention tremor. Gait was deferred due to bedrest. Arm and leg reflexes were 2+ and symmetric. Miller's sign was absent. Plantar responses were flexor. Medications Medications Current Medications Aspirin (Aspirin) 81 mg DAILY PO Last administered on 02/07/18at 09:26; Admin Dose 81 MG; Start 02/07/18 at 09:00 Polyethylene Glycol (Miralax) 17 gm DAILY PO Last administered on 02/07/18at 09:26; Admin Dose 17 GM; Start 02/07/18 at 09:00 Tramadol HCl (Ultram) 50 mg Q4 PRN PO PAIN; Start 02/06/18 at 15:30 Hydralazine HCl (Apresoline) 10 mg Q4H PRN IV SBP >220/110; Start 02/06/18 at 15:30 IV Flush (NS 3 ml) 3 ml PER PROTOCOL IV ; Start 02/06/18 at 15:30 Ondansetron HCl (Zofran Inj) 4 mg Q6H PRN IV NAUSEA AND/OR VOMITING; Start 02/06/18 at 15:30 Nitroglycerin (Nitroglycerin (Sl Tab) 0.4 Mg) 1 tab Q5M PRN SL CHEST PAIN; Start 02/06/18 at 15:30 Acetaminophen (Tylenol Tab) 650 mg Q6H PRN PO PAIN LEVEL 1-3 OR FEVER Last administered on 02/06/18at 16:46; Admin Dose 650 MG; Start 02/06/18 at 15:30 Docusate Sodium (Colace) 100 mg Q12H PRN PO CONSTIPATION; Start 02/06/18 at 15:30 Magnesium Hydroxide (Milk Of Mag) 30 ml DAILY PRN PO CONSTIPATION; Start 02/06/18 at 15:30 Pantoprazole (Protonix Tab) 40 mg DAILY@06 PO Last administered on 02/07/18at 06:02; Admin Dose 40 MG; Start 02/07/18 at 06:00 Labetalol HCl (Labetalol) 10 mg Q4H PRN IV SBP >220/110; Start 02/06/18 at 16:30 Lorazepam (Ativan) 1 mg ONCE PRN IV prior to MRI; Start 02/06/18 at 16:30; Stop 02/07/18 at 16:29 Atorvastatin Calcium (Lipitor) 40 mg HS PO Last administered on 02/06/18at 20:04; Admin Dose 40 MG; Start 02/06/18 at 21:00 Meclizine HCl (Antivert) 25 mg TID PRN PO dizziness; Start 02/06/18 at 16:30 Nicotine (Nicoderm 14 Mg/ 24hr) 1 patch DAILY TRANSDERM Last administered on 02/07/18 09:26; Admin Dose 1 PATCH; Start 02/06/18 at 17:00 Diphenhydramine HCl (Benadryl) 25 mg Q4 PRN IV ITCHING Last administered on 02/07/18 14:24; Admin Dose 25 MG; Start 02/07/18 at 14:30 Past Medical History reviewed Medical History: high cholesterol, hypertension Medications Current Medications Aspirin (Aspirin) 81 mg DAILY PO Last administered on 02/07/18 09:26; Admin Dose 81 MG; Start 02/07/18 at 09:00 Polyethylene Glycol (Miralax) 17 gm DAILY PO Last administered on 02/07/18 09:26; Admin Dose 17 GM; Start 02/07/18 at 09:00 Tramadol HCl (Ultram) 50 mg Q4 PRN PO PAIN; Start 02/06/18 at 15:30 Hydralazine HCl (Apresoline) 10 mg Q4H PRN IV SBP >220/110; Start 02/06/18 at 15:30 IV Flush (NS 3 ml) 3 ml PER PROTOCOL IV ; Start 02/06/18 at 15:30 Ondansetron HCl (Zofran Inj) 4 mg Q6H PRN IV NAUSEA AND/OR VOMITING; Start 02/06/18 at 15:30 Nitroglycerin (Nitroglycerin (Sl Tab) 0.4 Mg) 1 tab Q5M PRN SL CHEST PAIN; Start 02/06/18 at 15:30 Acetaminophen (Tylenol Tab) 650 mg Q6H PRN PO PAIN LEVEL 1-3 OR FEVER Last administered on 02/06/18at 16:46; Admin Dose 650 MG; Start 02/06/18 at 15:30 Docusate Sodium (Colace) 100 mg Q12H PRN PO CONSTIPATION; Start 02/06/18 at 15:30 Magnesium Hydroxide (Milk Of Mag) 30 ml DAILY PRN PO CONSTIPATION; Start at 15:30 Pantoprazole (Protonix Tab) 40 mg DAILY@06 PO Last administered on 02/07/18at 06:02; Admin Dose 40 MG; Start 02/07/18 at 06:00 Labetalol HCl (Labetalol) 10 mg Q4H PRN IV SBP >220/110; Start 02/06/18 at 16:30 Lorazepam (Ativan) 1 mg ONCE PRN IV prior to MRI; Start 02/06/18 at 16:30; Stop 02/07/18 at 16:29 Atorvastatin Calcium (Lipitor) 40 mg HS PO Last administered on 02/06/18at 20:04; Admin Dose 40 MG; Start 02/06/18 at 21:00 Meclizine HCl (Antivert) 25 mg TID PRN PO dizziness; Start 02/06/18 at 16:30 Nicotine (Nicoderm 14 Mg/ 24hr) 1 patch DAILY TRANSDERM Last administered on 02/07/18at 09:26; Admin Dose 1 PATCH; Start 02/06/18 at 17:00 Diphenhydramine HCl (Benadryl) 25 mg Q4 PRN IV ITCHING Last administered on 02/07/18at 14:24; Admin Dose 25 MG; Start 02/07/18 at 14:30 Allergies: Coded Allergies: avocado (Verified Allergy, Unknown, 02/07/18) banana (Verified Allergy, Unknown, 02/07/18) broccoli (Verified Allergy, Unknown, 02/07/18) carrot (Verified Allergy, Unknown, 02/07/18) melon (Verified Allergy, Unknown, 02/07/18) orange (Verified Allergy, Unknown, 02/07/18) watermelon (Verified Allergy, Unknown, 02/07/18) Past Surgical History reviewed Past Surgical Hx: other (hernia repair) Social History reviewed Alcohol Use: none Smoking Status: Current some day smoker Drug Use: cocaine (past history) FALGUNI HUBBARD NP Feb 07, 2018 14:46
--- NOTE | 2018-02-07 16:28 | RADRPT ---
Echocardiogram Report Patient Name: RIMA ROWAN Gender: Male Date: 1965 Study Date: 07-Feb-2018 Quality Control Representative: Aly Joshi [facility] Location: [address] Ref. Physician: MIKE GARVEY Quality: Adequate Procedures: Transthoracic echocardiogram with complete 2D, M-Mode, and doppler examination. Indications: Evaluate Left Ventricular function. 2D/M Mode Doppler Measurement Value Normal Ranges Measurement Value Normal Ranges LVIDd 2D 4.4 3.5 - 5.6 cm AV Peak [place] 1.4 m/sec LVIDs 2D 2.9 2.1 - 4.1 cm AV Peak PG 8.0 mmHg LVPWd 2D 1.1 0.6 - 1.1 cm LVOT Peak [place] 1.1 m/sec IVSd 2D 1.1 0.6 - 1.1 cm LVOT Peak PG 5.0 mmHg AoR Diam 2D 3.4 2.0 - 3.7 cm MV E Peak [place] 0.5 m/sec LA/Ao 2D 1 0 - 1 MV A Peak [place] 0.6 m/sec LA Dimen 2D 3.0 2.3 - 4.0 cm MV E/A 0.8 MV Decel Time 201 msec Lat E` Devon 0.1 m/sec Lateral E/E` 6.4 Med E` [place] 0.1 m/sec MV E/A 0.8 TR Peak [place] 2.8 m/sec TR Peak PG 32.0 mmHg RVSP 35.0 mmHg Findings Left Ventricle: Normal left ventricular systolic function. Normal left ventricular cavity size. Left ventricular wall thickness upper limits of normal. Ejection fraction is visually estimated at 60 %. Tissue Doppler/Mitral Doppler indices are consistent with impaired relaxation (Stage I diastolic dysfunction). Right Ventricle: Normal right ventricular size. Normal right ventricular systolic function. Left Atrium: The left atrium is normal in size. Right Atrium: The right atrium is normal in size. Mitral Valve: Mild mitral leaflet calcification. Mild mitral annular calcification. Trace mitral regurgitation. Aortic Valve: No significant aortic stenosis or insufficiency. Aortic cusps appear mildly calcified. Trace aortic valve regurgitation. Tricuspid Valve: Normal appearance of the tricuspid valve. Estimated peak PA systolic pressure 35 mmHg. There is mild tricuspid regurgitation. Pulmonic Valve: Pulmonic valve not well visualized. There is trace pulmonic regurgitation. Pericardium: Normal pericardium with no significant pericardial effusion. Aorta: Normal aortic root. IVC: Normal size and normal respiratory collapse consistent with normal right atrial pressure. Conclusions Normal left ventricular systolic function. Normal left ventricular cavity size. Left ventricular wall thickness upper limits of normal. Ejection fraction is visually estimated at 60 %. Tissue Doppler/Mitral Doppler indices are consistent with impaired relaxation (Stage I diastolic dysfunction). Mild mitral leaflet calcification. Mild mitral annular calcification. Trace mitral regurgitation. No significant aortic stenosis or insufficiency. Aortic cusps appear mildly calcified. Trace aortic valve regurgitation. Normal appearance of the tricuspid valve. Estimated peak PA systolic pressure 35 mmHg. There is mild tricuspid regurgitation. Pulmonic valve not well visualized. There is trace pulmonic regurgitation. Electronically Signed By: Abraham Vazquez 07-Feb-2018 16:27:49 -0800 Patient Name: RIMA ROWAN Study Date: 07-Feb-[id number]
--- NOTE | 2018-02-07 16:37 | NUR ---
Pending MRI. Spoke to MRI dept. Stated that the patient is on stand by because of maintenance of the machine.
--- NOTE | 2018-02-07 20:02 | NUR ---
Nursing Note: Spoke to Yisel from radiology. Per Yisel, MRI machine is still not working and pt will have to have MRI done in the morning.
[2018-02-07] MEDS: ATORVASTATIN 40 MG TAB PO SCH (21:15)
[2018-02-08] VITALS (9 sets, daily range): BP systolic 166–184; BP diastolic 80–98; PULSE 58–80; RESP 18–20
--- NOTE | 2018-02-08 00:20 | NUR ---
Nursing Note: Notified Dr. Ortiz that pt has a BP of 184/[address] Kidd's notes allow for permissive HTN for first 24 hours, but pt has been here for more than 24 hours. Per MD leave BP for now. Will continue to monitor.
[2018-02-08] MEDS: PANTOPRAZOLE (EC) 40 MG TAB PO SCH (06:06)
--- NOTE | 2018-02-08 06:36 | NUR ---
EOSS: Pt resting comfortably in stable condition. Pt a/o X4 and on room air. VS stable. Will endorse to oncoming RN.
[2018-02-08] MEDS: ASPIRIN 81 MG TAB PO SCH (08:38)
[2018-02-08] MEDS: NICOTINE (14 MG/24 HR) PATCH TRANSDERM SCH (08:39)
[2018-02-08] MEDS: POLYETHYLENE GLYCOL 17 GM PACKET PO SCH (08:39)
--- NOTE | 2018-02-08 09:01 | PN ---
Date/Time of Note Date/Time of Note DATE: 02/08/18 TIME: 09:01 Assessment/Plan VTE Prophylaxis Risk score (from Ns)>0 risk: 1 SCD applied (from Ns): Yes Pharmacological prophylaxis: NA/contraindicated Pharm contraindication: bleeding Lines/Catheters IV C[facility]ter Type (from [facility] Saline Lock Urinary Cath still in place: No Assessment/Plan Assessment/Plan 1. Hypertensive emergency- resolved - Per Neurology, continue permissive hypertension until results of MRI return - Patient states numbness and tingling left face, UE, and LE has resolved 2. Left sided numbness, rule out CVA - CT head negative for acute issues and Carotids without stenosis - MRI pending - statin and aspirin - Neurology consultation appreciated and recommending to continue permissive HTN until MRI resulted - PT/OT recommending FWW 3. HLD - TG and Chol elevated - on statin and will need diet modification after discharge - will start on fish oil as well prior to d/c 4. Tobacco abuse - smoking cessation provided - nicotine patch while inhouse 5. Dizziness - Will give Antivert TID 6. Disposition - Awaiting MRI results Result Diagram: 02/07/18 0500 02/07/18 0500 Subjective 24 Hr Interval Summary Free Text/Dictation Patient states he's not experiencing more prominent dizziness with ambulation. States numbness has improved. No acute overnight events. Exam/Review of Systems Vital Signs Vitals Vital Signs Date Temp Pulse Resp B/P (MAP) Pulse Ox O2 O2 Flow FiO2 Time Delivery Rate 02/08/18 68 08:00 02/08/18 97.8 18 177/80 96 Room Air 07:51 (112) Intake and Output 02/07/18 02/07/18 02/08/18 1515:00 23:00 07:00 IntakeIntake Total 1000 ml 500 ml BalanceBalance 1000 ml 500 ml Exam General: mild distress secondary to dizziness CVS: S1, S2, regular rate and rhythm. no murmurs Lungs: Clear to auscultation bilaterally. no wheezing or rhonchi Abd: soft, nontender to palpation, nondistended. no rebound or guarding Ext: moving all extremities. no cyanosis, clubbing or edema Neuro: CN 2-12 intact. motor strength 5/5 UE and LE bilaterally. Skin: no rashes or lesions appreciated. Medications Medications Current Medications Aspirin (Aspirin) 81 mg DAILY PO Last administered on 02/08/18at 08:38; Admin Dose 81 MG; Start 02/07/18 at 09:00 Polyethylene Glycol (Miralax) 17 gm DAILY PO Last administered on 02/08/18at 08:39; Admin Dose 17 GM; Start 02/07/18 at 09:00 Tramadol HCl (Ultram) 50 mg Q4 PRN PO PAIN; Start 02/06/18 at 15:30 Hydralazine HCl (Apresoline) 10 mg Q4H PRN IV SBP >220/110; Start 02/06/18 at 15:30 IV Flush (NS 3 ml) 3 ml PER PROTOCOL IV ; Start 02/06/18 at 15:30 Ondansetron HCl (Zofran Inj) 4 mg Q6H PRN IV NAUSEA AND/OR VOMITING; Start 02/06/18 at 15:30 Nitroglycerin (Nitroglycerin (Sl Tab) 0.4 Mg) 1 tab Q5M PRN SL CHEST PAIN; Start 02/06/18 at 15:30 Acetaminophen (Tylenol Tab) 650 mg Q6H PRN PO PAIN LEVEL 1-3 OR FEVER Last administered on 02/06/18at 16:46; Admin Dose 650 MG; Start 02/06/18 at 15:30 Docusate Sodium (Colace) 100 mg Q12H PRN PO CONSTIPATION; Start 02/06/18 at 15:30 Magnesium Hydroxide (Milk Of Mag) 30 ml DAILY PRN PO CONSTIPATION; Start 02/06/18 at 15:30 Pantoprazole (Protonix Tab) 40 mg DAILY@06 PO Last administered on 02/08/18at 06:06; Admin Dose 40 MG; Start 02/07/18 at 06:00 Labetalol HCl (Labetalol) 10 mg Q4H PRN IV SBP >220/110; Start 02/06/18 at 16:30 Atorvastatin Calcium (Lipitor) 40 mg HS PO Last administered on 02/07/18at 21:15; Admin Dose 40 MG; Start 02/06/18 at 21:00 Meclizine HCl (Antivert) 25 mg TID PRN PO dizziness; Start 02/06/18 at 16:30 Nicotine (Nicoderm 14 Mg/ 24hr) 1 patch DAILY TRANSDERM Last administered on 02/08/18at 08:39; Admin Dose 1 PATCH; Start 02/06/18 at 17:00 Diphenhydramine HCl (Benadryl) 25 mg Q4 PRN IV ITCHING Last administered on 02/07/18at 14:24; Admin Dose 25 MG; Start 02/07/18 at 14:30 MIKE GARVEY MD Feb 08, 2018 09:01
--- NOTE | 2018-02-08 10:00 | NUR ---
PT EVALUATION Therapy day number 1 Evaluation Start Time 10:00 Evaluation End Time 11:00 Evaluation Total Time 60 min Subjective Current complaint of pain Pain Scale NUMERIC Pain Intensity 7 (0-10) Patient Stated Goal for Pain Relief 0 (0-10) Pain Level Comment headache Pre Treatment Vital Signs Stable No - see PT Notes- elevated BP Exercise Assessment Label Bilat Lower Extremity Exercise Type Active ROM Additional Exercise Comments ankle pumps and heel slides Supine to Sit Contact Guard Assist Transfer Sit to Stand Ability Minimum Assist Bed Mobility Sit to Supine Minimum Assist Sitting Tolerance 10 min Additional Mobility Comments c/o of dizzinesss with mobility Gait Assist Levels Minimum Assist Assistive Devices Front Wheel Walker Ambulation Distance 10 feet Additional Gait Comments unable to progress with gait due to dizziness Weight Bearing Assessment Label Bilat Lower Extremity Weight Bearing Status Weight Bearing as Gissel Static Sitting Balance Fair plus Dynamic Sitting Balance Fair Standing Static Balance Fair Dynamic Standing Balance Fair minus Additional Balance Assessments Comments complained of dizziness with standing Safety Judgement Fair Activity Tolerance Poor Post Treatment Pain Intensity 7 0-10 Additional Post Treatment Comment see PT NOTES Total Minutes 60 Total Units 4 PT Technical Record Comment PT EVALUATION: M.D.order received for PT eval with [facility]. Consulted with INA Johnson and reports patient does have high BP and to monitor. Patient is alert and oriented x 4 and agreed to PT. Complained of a headache 7/10 pain level. HPI: 52 yo M with hx of HTN, HLD, medication noncompliance and other comorbidities who p/w headache, L hemiparesis and hemisensory loss. Admitted for further eval and tx. PLOF: Active working, rides his bicycle to work. Lives in an apt. and takes care of his 15 year old daughter. Independent with all ADL's. CLOF: Patient supine BP: 189/95 mmHg, MD: 64 bpm. Noted slight weakness on Left UE/LE. Bed mobility and Transfers: [place] Silver Gait trained at bed side with FWW and unable to progress due to increased dizziness. Took BP after gait 202/124/mmHg. BTB with [place] Johnson notified of elevated BP and stated that she will notify M.D. Call light at side, bed alarm activated, all needs met. Recommendations: Will benefit from PT 6x/wk for 1 week to increase functional independence with mobility. Patient needing FWW at the moment due to very unsteady with gait. Will determine need for DME pending progress with PT.
--- NOTE | 2018-02-08 10:45 | NUR ---
OT EVAL: Pt is a 52 yo M with PMH HTN and HLD presented to ED complaining of dizziness, left sided weakness and tingling from face to leg, nausea, and severe headache since yesterday at 7am. Patient states he ran out of his BP medication due to insurance and last took medications in March. Patient was evaluated in ED and CT scan was performed with no acute abnormalities. He was given medications for BP control but weakness did not resolve. Patient was still complaining of headache with dizziness and abdominal discomfort with associated nausea. Patient did admit to mild chest discomfort which was worse with deep inhalation. Admits to nonproductive cough. Denies any LOC, palpitations, constipation, diarrhea, or right sided weakness or tingling. PLOF: Pt lives with his daughter in as single story home. Pt was independent with all ADL's and ambulated without any DME prior to hospitalization. CLOF: RN cleared pt for OT services. Pt received supine in bed and agreeable to tx stating 7/10 pain in his head and slight tingling in in left arm. Pt demonstrated RUE AROM WFL: MMT of 4/5 and LUE AROM WFL: MMT of 3/5. Pt reported slight numbness in RUE. Pt demonstrated h/g , UB/LB dressing and bathing independently. Pt performed STS and functional mob with SBA due to dizziness. Pt left supine in bed with all needs met. RN notified. No skilled OT warranted as pt is independent with ADL's and SBA for functional mob and transfers due to dizziness. D/C home when medically cleared by .
--- NOTE | 2018-02-08 13:36 | CONS ---
Assessment/Plan Assessment/Plan Hospital Course A: 52 yo M with hx of HTN, HLD, medication noncompliance and other comorbidities who p/w headache, L hemiparesis and hemisensory loss... for which neurology is consulted. Most clinically concerning for stroke. Hypertensive urgency is a diagnosis of exclusion. Complicated migraine is less likely. CTH is without acute intracranial pathology. CUS is normal. Echo is unrevealing. P: Await MRI, MRA H/N for further characterization Cont ASA/statin pending the above Permissive HTN up to 220/110 through today pending the MRI results Cont medical management per primary PT/OT as necessary Will follow clinically Result Diagram: 02/07/18 0500 02/07/18 0500 Consultation Date/Type/Reason Admit Date/Time Feb 06, 2018 at 15:17 Type of Consult Neurology Reason for Consultation eval for stroke Requesting Provider: MIKE GARVEY MD Date/Time of Note DATE: 02/08/18 TIME: 13:36 24 HR Interval Summary Free Text/Dictation Pt has c/o continued mild headache, L sided numbness but states that his L sided weakness has resolved. Exam Vital Signs Vitals Vital Signs Date Temp Pulse Resp B/P (MAP) Pulse Ox O2 O2 Flow FiO2 Time Delivery Rate 02/08/18 80 12:00 02/08/18 98.1 20 166/82 96 Room Air 11:17 (110) Intake and Output 02/07/18 02/07/18 02/08/18 1515:00 23:00 07:00 IntakeIntake Total 1000 ml 500 ml BalanceBalance 1000 ml 500 ml Exam PE: Gen Appearance: No Apparent Distress HEENT: Normocephalic Cardiovascular: Regular rate Lungs: Clear bilaterally Abdomen: Soft Extremities: Dry NE: The patient was alert and oriented.. Language was normal. Fund of knowledge was normal. Pupils were equal and reactive to light. There was no afferent pupillary defect. Visual marquez were normal. Funduscopic examination was limited. Extra-ocular movements were full. Ptosis was absent. There was no nystagmus. Facial sensation was normal. Face was symmetric with normal strength. Hearing was intact. Palate movements were normal. Neck strength was normal. There was normal tongue bulk and speed of movement. Tone was normal. Muscle bulk was normal. I did not see fasciculations. Arms and legs were strong to confrontation, though slightly weaker on the L. Vibration sensation and sensation to light touch was diminished on the L. Temperature and pinprick sensation was normal. Rapid alternating movements were normal. There was no dysmetria. There was no intention tremor. Gait was deferred due to bedrest. Arm and leg reflexes were 2+ and symmetric. Miller's sign was absent. Plantar responses were flexor. FALGUNI HUBBARD NP Feb 08, 2018 13:36 ADAM SCHNEIDER Feb 08, 2018 18:54
--- NOTE | 2018-02-08 15:36 | NUR ---
CM NOTE RECEIVED AN ORDER FOR DME: FWW, CM NOTIFIED LEAD CM AND FWW WAS PROVIDED TO PT VIA [employer] [facility].
--- NOTE | 2018-02-08 19:05 | NUR ---
EOSS: Patient stable, not in distress. Denies any pain/discomfort. All needs attended well. Continued monitoring as plan of care.
--- NOTE | 2018-02-08 19:07 | NUR ---
MRI/MRA Brain still pending, as per technical business analyst, patient is scheduled tonight at 2215. Endorsed to next shift.
[2018-02-08] MEDS: MECLIZINE 25 MG TAB PO SCH (21:17)
[2018-02-08] MEDS: ATORVASTATIN 40 MG TAB PO SCH (21:17)
[2018-02-09] VITALS (14 sets, daily range): BP systolic 126–171; BP diastolic 81–96; PULSE 63–100; RESP 17–20
--- NOTE | 2018-02-09 03:45 | NUR ---
Nursing Note: Notified Dr. Ortiz that pt's MRI shows possible aneurysm. Per MD inform Dr. Roberts. Called Dr. Roberts and left a message. Will continue to monitor.
[2018-02-09] MEDS: PANTOPRAZOLE (EC) 40 MG TAB PO SCH (05:56)
--- NOTE | 2018-02-09 06:36 | NUR ---
EOSS: Pt resting comfortably in stable condition. Pt a/o X4 and on room air. VS stable. Will endorse to oncoming RN.
[2018-02-09] MEDS: POLYETHYLENE GLYCOL 17 GM PACKET PO SCH (08:03)
[2018-02-09] MEDS: MECLIZINE 25 MG TAB PO SCH ×3 (08:03→20:45)
[2018-02-09] MEDS: ASPIRIN 81 MG TAB PO SCH (08:03)
[2018-02-09] MEDS: NICOTINE (14 MG/24 HR) PATCH TRANSDERM SCH (08:04)
--- NOTE | 2018-02-09 08:30 | NUR ---
PT NOTE Therapy day number 2 Subjective Denies pain Pain Scale NUMERIC Pain Intensity 0 (0-10) Patient Stated Goal for Pain Relief 0 (0-10) Pain Level Comment denies pain Pre Treatment Vital Signs Stable No - SEE PT NOTE- elevated BP Transfer Training Start Time 08:30 Supine to Sit Modified Independent Transfer Sit to Stand Ability Supervised Bed Mobility Sit to Supine Modified Independent Transfer Training End Time 08:42 Total Transfer Training Time 12 min (8-127) Gait Training Start Time 08:42 Gait Assist Levels Supervised Assistive Devices None Ambulation Distance 150 feet Additional Gait Comments steady pace/gait, reciprocal pattern, no LOB/buckling Gait Training End Time 09:10 Total Gait Training Treatment Time 28 min (8-127) Stair Climbing Ability Stand by Assist Number of Stairs 12 Stairs Additional Stairs Assist Comments 12 steps x 1 using 1 rail, step to pattern w/VCs for sequence Static Sitting Balance Good Dynamic Sitting Balance Good Standing Static Balance Good Dynamic Standing Balance Fair plus Additional Balance Assessments Comments no AD Safety Judgement Good Activity Tolerance Good Post Treatment Pain Intensity 0 0-10 Variance Documentation SEE BELOW AND PT NOTE Total Treament Time 40 min (8-127) Total Minutes 40 Total Units 3 PT Technical Record Comment PT NOTE S: Pt stated, "I feel fine, in fact better than yesterday." Pt speaks [place]. Agreeable for PT and cleared per KULWANT Hernandez. O: Received pt in R side-lying, asleep. VCs to rouse. V/S pre tx 170/96 HR 74, asymptomatic. Bed mobility w/HOB slightly elevated Nancy. Applied gait belt at EOB. STS w/no AD Supervised. Gait training performed w/no AD 150' Supervised. Noted steady pace/gait, reciprocal pattern, and no LOB/buckling. Stairs training performed afterwards 12 steps x 1 using 1 rail, step to pattern w/VCs for sequence. Performed w/fair demonstration. Assisted pt back to room BTB. Reassessed V/S at EOB 175/120, asymptomatic. Retook V/S within 1 minute 162/113. Sit>supine Nancy. Reassessed V/S in semi-fowlers 174/90, asymptomatic. Left pt in comfort position, call light/phone within reach, bed alarmed, and all needs met. KULWANT Hernandez informed of pt's status and BP readings throughout tx. A: Good tolerance to tx. Pt showed no signs of distress or SOB during or after tx. No c/o dizziness, pain, or nausea throughout tx. Pt significantly improved w/bed mobility, transfers, and gait assistance/distance compared to previous tx. V/S monitored throughout tx and pt remained asymptomatic. P: Continue POC and progress as tolerated.
--- NOTE | 2018-02-09 08:33 | PN ---
Date/Time of Note Date/Time of Note DATE: 02/09/18 TIME: 08:33 Assessment/Plan VTE Prophylaxis Risk score (from Ns)>0 risk: 2 SCD applied (from Ns): Yes Pharmacological prophylaxis: NA/contraindicated Pharm contraindication: bleeding Lines/Catheters [facility] Saline Lock Urinary Cath still in place: No Assessment/Plan Assessment/Plan 1. Hypertensive emergency - Will restart home Benazepril and adjust as needed for better BP control - Patient states numbness and tingling left face, UE, and LE has resolved 2. Left sided numbness- resolved - CT head negative for acute issues and Carotids without stenosis - MRI/MRA shows arachnoid cyst. Will need close monitoring in the future given etiology of dizziness that has resolved with Antivert - statin and aspirin - Neurology consultation appreciated - PT/OT recommending FWW 3. HLD - TG and Chol elevated - on statin and will need diet modification after discharge - will start on fish oil as well prior to d/c 4. Tobacco abuse - smoking cessation provided - nicotine patch while inhouse 5. Dizziness - secondary to arachnoid cyst causing mass effect on cerebellum - stable on Antivert TID 6. Disposition - Will touch base with Neurology regarding discharge planning Result Diagram: 02/07/18 0500 02/09/18 0517 Results 24hrs Laboratory Tests Test 02/09/18 05:17 Sodium Level 144 Potassium Level 4.0 Chloride Level 104 Carbon Dioxide Level 28 Anion Gap 12 Blood Urea Nitrogen 21 H Creatinine 0.97 Glucose Level 98 Calcium Level 9.0 Phosphorus Level 5.2 H Magnesium Level 2.2 Albumin 4.1 Subjective 24 Hr Interval Summary Free Text/Dictation Patient states he's feeling significantly better since yesterday and no longer experiencing dizziness with ambulating. No new focal deficits appreciated and numbness has resolved. Exam/Review of Systems Vital Signs Vitals Vital Signs Date Temp Pulse Resp B/P (MAP) Pulse Ox O2 O2 Flow FiO2 Time Delivery Rate 02/09/18 98.1 67 20 166/94 94 Room Air 07:33 (118) Intake and Output 02/08/18 02/08/18 02/09/18 1414:59 22:59 06:59 IntakeIntake Total 1600 ml 1800 ml OutputOutput Total 2800 ml 1195 ml BalanceBalance -1200 ml 605 ml Exam General: no acute distress. awaken and answering questions appropriately CVS: S1, S2, regular rate and rhythm. no murmurs Lungs: Clear to auscultation bilaterally. no wheezing or rhonchi Abd: soft, nontender to palpation, nondistended. no rebound or guarding Ext: moving all extremities. no cyanosis, clubbing or edema Neuro: CN 2-12 intact. motor strength 5/5 UE and LE bilaterally. Medications Medications Current Medications Aspirin (Aspirin) 81 mg DAILY PO Last administered on 02/09/18at 08:03; Admin Dose 81 MG; Start 02/07/18 at 09:00 Polyethylene Glycol (Miralax) 17 gm DAILY PO Last administered on 02/09/18at 08:03; Admin Dose 17 GM; Start 02/07/18 at 09:00 Tramadol HCl (Ultram) 50 mg Q4 PRN PO PAIN; Start 02/06/18 at 15:30 Hydralazine HCl (Apresoline) 10 mg Q4H PRN IV SBP >220/110 Last administered on 02/08/18at 10:42; Admin Dose 10 MG; Start 02/06/18 at 15:30 IV Flush (NS 3 ml) 3 ml PER PROTOCOL IV ; Start 02/06/18 at 15:30 Ondansetron HCl (Zofran Inj) 4 mg Q6H PRN IV NAUSEA AND/OR VOMITING; Start 02/06/18 at 15:30 Nitroglycerin (Nitroglycerin (Sl Tab) 0.4 Mg) 1 tab Q5M PRN SL CHEST PAIN; Start 02/06/18 at 15:30 Acetaminophen (Tylenol Tab) 650 mg Q6H PRN PO PAIN LEVEL 1-3 OR FEVER Last administered on 02/06/18at 16:46; Admin Dose 650 MG; Start 02/06/18 at 15:30 Docusate Sodium (Colace) 100 mg Q12H PRN PO CONSTIPATION; Start 02/06/18 at 15:30 Magnesium Hydroxide (Milk Of Mag) 30 ml DAILY PRN PO CONSTIPATION; Start 02/06/18 at 15:30 Pantoprazole (Protonix Tab) 40 mg DAILY@06 PO Last administered on 02/09/18at 05:56; Admin Dose 40 MG; Start 02/07/18 at 06:00 Labetalol HCl (Labetalol) 10 mg Q4H PRN IV SBP >220/110; Start 02/06/18 at 16:30 Atorvastatin Calcium (Lipitor) 40 mg HS PO Last administered on 02/08/18at 21:17; Admin Dose 40 MG; Start 02/06/18 at 21:00 Nicotine (Nicoderm 14 Mg/ 24hr) 1 patch DAILY TRANSDERM Last administered on 02/09/18 08:04; Admin Dose 1 PATCH; Start 02/06/18 at 17:00 Diphenhydramine HCl (Benadryl) 25 mg Q4 PRN IV ITCHING Last administered on 1 04/10/17at 14:24; Admin Dose 25 MG; Start 02/07/18 at 14:30 Meclizine HCl (Antivert) 25 mg TID PO Last administered on 02/09/18 08:03; Admin Dose 25 MG; Start 02/08/18 at 21:00 MIKE GARVEY MD Feb 09, 2018 08:33
--- NOTE | 2018-02-09 12:24 | CONS ---
Assessment/Plan Assessment/Plan Hospital Course A: 52 yo M with hx of HTN, HLD, medication noncompliance and other comorbidities who p/w headache, L hemiparesis and hemisensory loss... for which neurology is consulted. Most clinically consistent w/ complicated migraine. MRI is without acute intracranial pathology MRA is unremarkable CUS is normal. Echo is unrevealing. P: Pain control and other medical management per primary PT/OT as necessary Will sign off; please call w/ ?s Result Diagram: 02/07/18 0500 02/09/18 0517 Results 24hrs Laboratory Tests Test 02/09/18 05:17 Sodium Level 144 Potassium Level 4.0 Chloride Level 104 Carbon Dioxide Level 28 Anion Gap 12 Blood Urea Nitrogen 21 H Creatinine 0.97 Glucose Level 98 Calcium Level 9.0 Phosphorus Level 5.2 H Magnesium Level 2.2 Albumin 4.1 Consultation Date/Type/Reason Admit Date/Time Feb 06, 2018 at 15:17 Type of Consult Neurology Reason for Consultation eval for stroke Requesting Provider: MIKE GARVEY MD Date/Time of Note DATE: 02/09/18 TIME: 12:24 Exam Vital Signs Vitals Vital Signs Date Temp Pulse Resp B/P (MAP) Pulse Ox O2 O2 Flow FiO2 Time Delivery Rate 02/09/18 97.8 74 20 167/96 96 Room Air 11:41 (119) Intake and Output 02/08/18 02/08/18 02/09/18 1414:59 22:59 06:59 IntakeIntake Total 1600 ml 1800 ml OutputOutput Total 2800 ml 1195 ml BalanceBalance -1200 ml 605 ml Exam PE: Gen Appearance: No Apparent Distress HEENT: Normocephalic Cardiovascular: Regular rate Lungs: Clear bilaterally Abdomen: Soft Extremities: Dry NE: The patient was alert and oriented.. Language was normal. Fund of knowledge was normal. Pupils were equal and reactive to light. There was no afferent pupillary defect. Visual marquez were normal. Funduscopic examination was limited. Extra-ocular movements were full. Ptosis was absent. There was no nystagmus. Facial sensation was normal. Face was symmetric with normal strength. Hearing was intact. Palate movements were normal. Neck strength was normal. There was normal tongue bulk and speed of movement. Tone was normal. Muscle bulk was normal. I did not see fasciculations. Arms and legs were strong to confrontation, though slightly weaker on the L. Vibration sensation and sensation to light touch was diminished on the L. Temperature and pinprick sensation was normal. Rapid alternating movements were normal. There was no dysmetria. There was no intention tremor. Gait was deferred due to bedrest. Arm and leg reflexes were 2+ and symmetric. Miller's sign was absent. Plantar responses were flexor. FALGUNI HUBBARD NP Feb 09, 2018 12:24 ADAM SCHNEIDER Feb 10, 2018 07:09
[2018-02-09] MEDS: FISH OIL 1,000 MG CAP PO SCH ×2 (13:25→20:44)
[2018-02-09] MEDS: BENAZEPRIL 20 MG TAB PO SCH (13:25)
--- NOTE | 2018-02-09 18:21 | NUR ---
Patient is alert, oriented x4. No SOB or desaturation noted. Kept comfortable at all times. All needs attended.
[2018-02-09] MEDS: ATORVASTATIN 40 MG TAB PO SCH (20:45)
--- NOTE | 2018-02-10 01:45 | NUR ---
received patient from [address] report received from Jordan BLUM prior t pt arrival. pt aox4, ambulatory with assist and walker. denies pain when asked. skin assessment done with photos taken, skin intact. oriented to his room, call button, use pf phone and hourly rounding. will continue to monitor. Addendum: 02/10/18 at 0554 by NESSA RODRIGUEZ RN no acute events. remained afebrile, vss. needs anticipated and attended to. will continue to monitor and will endorse accordingly.
[2018-02-10 02:00] VITALS: BP 163/79; PULSE 77; RESP 18
[2018-02-10] MEDS: PANTOPRAZOLE (EC) 40 MG TAB PO SCH (05:34)
[2018-02-10 07:45] VITALS: BP 162/85; PULSE 96; RESP 18
[2018-02-10] MEDS: ASPIRIN 81 MG TAB PO SCH (08:30)
[2018-02-10] MEDS: BENAZEPRIL 20 MG TAB PO SCH (08:30)
[2018-02-10] MEDS: FISH OIL 1,000 MG CAP PO SCH (08:30)
[2018-02-10] MEDS: NICOTINE (14 MG/24 HR) PATCH TRANSDERM SCH (08:31)
[2018-02-10] MEDS: POLYETHYLENE GLYCOL 17 GM PACKET PO SCH (08:31)
--- NOTE | 2018-02-10 08:58 | PN ---
Date/Time of Note Date/Time of Note DATE: 02/10/18 TIME: 08:57 Assessment/Plan VTE Prophylaxis Risk score (from Ns)>0 risk: 2 SCD applied (from Ns): Yes Pharmacological prophylaxis: NA/contraindicated Pharm contraindication: bleeding Lines/Catheters IV [facility] Saline Lock Urinary Cath still in place: No Assessment/Plan Assessment/Plan 1. Hypertensive emergency- improving - Increased Benazepril and if BP improving, will d/c home. Patient initial issue was he ran out of his BP medications - Patient states numbness and tingling left face, UE, and LE has resolved 2. Left sided numbness- resolved - CT head negative for acute issues and Carotids without stenosis - MRI/MRA shows arachnoid cyst. Will need close monitoring in the future given etiology of dizziness that has resolved with Antivert - statin and aspirin - Neurology consultation appreciated and believes sx secondary to migraines - PT/OT recommending FWW 3. HLD - TG and Chol elevated - on statin and will need diet modification after discharge - started on fish oil 4. Tobacco abuse - smoking cessation provided - nicotine patch while inhouse 5. Dizziness - secondary to arachnoid cyst causing mass effect on cerebellum - stable on Antivert TID 6. Disposition - If BP better controlled after increased dose of Benazepril, will d/c home Result Diagram: 02/07/18 0500 02/09/18 0517 Subjective 24 Hr Interval Summary Free Text/Dictation Patient states hes feeling better and in no acute distress. LUE and LLE numbness has resolved and no longer experiencing dizziness. Exam/Review of Systems Vital Signs Vitals Vital Signs Date Temp Pulse Resp B/P (MAP) Pulse Ox O2 O2 Flow FiO2 Time Delivery Rate 02/10/18 98.2 77 18 163/79 93 02:00 (107) 02/09/18 Room Air 15:40 Intake and Output 02/09/18 02/09/18 02/10/18 1515:00 23:00 07:00 IntakeIntake Total 2600 ml OutputOutput Total 2800 ml BalanceBalance -200 ml Exam General: no acute distress. awaken and answering questions appropriately CVS: S1, S2, regular rate and rhythm. no murmurs Lungs: Clear to auscultation bilaterally. no wheezing or rhonchi Abd: soft, nontender to palpation, nondistended. no rebound or guarding Ext: moving all extremities. no cyanosis, clubbing or edema Neuro: CN 2-12 intact. motor strength 5/5 UE and LE bilaterally. Medications Medications Current Medications Aspirin (Aspirin) 81 mg DAILY PO Last administered on 02/10/18at 08:30; Admin Dose 81 MG; Start 02/07/18 at 09:00 Polyethylene Glycol (Miralax) 17 gm DAILY PO Last administered on 02/10/18at 08:31; Admin Dose 17 GM; Start 02/07/18 at 09:00 Tramadol HCl (Ultram) 50 mg Q4 PRN PO PAIN; Start 02/06/18 at 15:30 Hydralazine HCl (Apresoline) 10 mg Q4H PRN IV SBP >220/110 Last administered on 02/08/18at 10:42; Admin Dose 10 MG; Start 02/06/18 at 15:30 IV Flush (NS 3 ml) 3 ml PER PROTOCOL IV ; Start 02/06/18 at 15:30 Ondansetron HCl (Zofran Inj) 4 mg Q6H PRN IV NAUSEA AND/OR VOMITING; Start 02/06/18 at 15:30 Nitroglycerin (Nitroglycerin (Sl Tab) 0.4 Mg) 1 tab Q5M PRN SL CHEST PAIN; Start 02/06/18 at 15:30 Acetaminophen (Tylenol Tab) 650 mg Q6H PRN PO PAIN LEVEL 1-3 OR FEVER Last administered on 02/06/18at 16:46; Admin Dose 650 MG; Start 02/06/18 at 15:30 Docusate Sodium (Colace) 100 mg Q12H PRN PO CONSTIPATION; Start 02/06/18 at 15:30 Magnesium Hydroxide (Milk Of Mag) 30 ml DAILY PRN PO CONSTIPATION; Start 01/13 07/30 at 15:30 Pantoprazole (Protonix Tab) 40 mg DAILY@06 PO Last administered on 02/10/18at 05:34; Admin Dose 40 MG; Start 02/07/18 at 06:00 Labetalol HCl (Labetalol) 10 mg Q4H PRN IV SBP >220/110; Start 02/06/18 at 16:30 Atorvastatin Calcium (Lipitor) 40 mg HS PO Last administered on 02/09/18at 20:45; Admin Dose 40 MG; Start 02/06/18 at 21:00 Nicotine (Nicoderm 14 Mg/ 24hr) 1 patch DAILY TRANSDERM Last administered on 02/10/18 08:31; Admin Dose 1 PATCH; Start 02/06/18 at 17:00 Diphenhydramine HCl (Benadryl) 25 mg Q4 PRN IV ITCHING Last administered on 02/07/18 14:24; Admin Dose 25 MG; Start 02/07/18 at 14:30 Meclizine HCl (Antivert) 25 mg TID PO Last administered on 02/09/18 20:45; Admin Dose 25 MG; Start 02/08/18 at 21:00 Benazepril HCl (Lotensin) 20 mg DAILY PO Last administered on 02/10/18 08:30; Admin Dose 20 MG; Start 02/09/18 at 12:30 Fish Oil (Fish Oil) 2,000 mg BID PO Last administered on 02/10/18 08:30; Admin Dose 2,000 MG; Start 02/09/18 at 13:00 MIKE GARVEY MD Feb 10, 2018 08:58
[2018-02-10] MEDS ORDERED: BENAZEPRIL 20 MG TAB PO ONE (09:00)
[2018-02-10] MEDS: MECLIZINE 25 MG TAB PO SCH ×2 (10:29→14:12)
[2018-02-10 11:00] VITALS: BP 141/82; PULSE 76
[2018-02-10] MEDS ORDERED: OMEG-157 PO (14:22)
[2018-02-10] MEDS ORDERED: ATOR40TA68 PO (14:22)
[2018-02-10] MEDS ORDERED: MECL-77 PO (14:22)
[2018-02-10] MEDS ORDERED: BENA40TA56 PO (14:22)
[2018-02-10 14:33] VITALS: BP 138/70; PULSE 69; RESP 18
[2018-02-10 14:35] VITALS: BP 105/59; PULSE 67; RESP 16
[2018-02-10] MEDS ORDERED: AMLO5TAB4 PO (15:01)
--- NOTE | 2018-02-10 15:04 | PDOCDIS ---
Discharge Instructions DIAGNOSIS Discharge Diagnosis 1. Hypertensive emergency- resolved 2. Left sided numbness- resolved 3. HLD 4. Tobacco abuse 5. Dizziness CONDITION [id number] Patient Condition: [id number] Stable HOME CARE INSTRUCTIONS: [id number] Diet Instructions: [id number] Low Fat /Cholesterol ACTIVITY: [id number] Activity Restrictions: [id number] No Restrictions FOLLOW UP/APPOINTMENTS Follow-up Plan 1. Follow up with your primary care physician in 1 week 2. Take Benazepril and Amlodipine daily as prescribed for blood pressure control 3. Take Antivert as needed when feeling dizzy 4. Follow low salt, low cholesterol, low carb diet 5. if symptoms return or worsen, please go to your closest emergency department MIKE GARVEY MD Feb 10, 2018 15:04
--- NOTE | 2018-02-10 16:47 | DS ---
Date/Time of Note Date/Time of Note DATE: 02/10/18 TIME: 16:42 Discharge Summary Admission/Discharge Info Admit Date/Time Feb 06, 2018 at 15:17 Discharge Date/Time 02/10/18 Discharge Diagnosis 1. Hypertensive emergency- resolved 2. Left sided numbness- resolved 3. HLD 4. Tobacco abuse 5. Dizziness Patient Condition: Stable Consults Neurology- Dr. Roberts Procedures PROCEDURE: MRI Brain without and with contrast. CLINICAL INDICATION: Left-sided weakness and dizziness. Neurological deficit. TECHNIQUE: An MRI of the brain was performed utilizing the following sequences: Sagittal T1-weighted, axial T2-weighted, axial FLAIR, axial T1, coronal GRE axial diffusion-weighted with ADC mapping. Following the uneventful administration of 10 cc ProHance, postcontrast axial and coronal T1-weighted images were obtained. Images were viewed on a PACS workstation. COMPARISON: Brain CT 02/06/2018. Brain MRI 09/11/2014. FINDINGS: No diffusion weighted abnormalities are seen to suggest the presence of acute ischemia or recent infarct. There is no intracranial hemorrhage or midline shift. No extra-axial fluid collection is seen. The ventricles and sulci are mildly enlarged indicative of volume loss. There is similar paramedian retrocerebellar fluid intensity measuring 3.1 x 4.8 x 5.1 cm (AP x transverse x craniocaudal). There is mild to moderate associated mass effect on the adjacent cerebellum and brain. There is no associated enhancement or restricted diffusion. There are minimal foci of T2 FLAIR hyperintensity in the white matter, which are nonspecific in etiology but likely reflect chronic small vessel ischemic changes. The gradient echo images reveal no areas of susceptibility artifact to suggest blood degradation products or abnormal calcification. There is 4 x 3.5 mm vascular outpouching in the region of the left MCA bifurcation which is concerning for an aneurysm. Otherwise no abnormal intraparenchymal, meningeal or ependymal enhancement is seen. The pituitary and sella reveal no abnormality. The suprasellar cistern is clear. The visualized paranasal sinuses demonstrate mild to moderate mucosal thickening more pronounced in maxillary sinus. The mastoid air cells are clear. IMPRESSION: 1. No acute intracranial hemorrhage or mass. No intracranial enhancing abnormality. 2. 4 x 3.5 mm vascular outpouching in the region of the left MCA bifurcation which is concerning for an aneurysm. 3. Similar paramedian retrocerebellar fluid intensity measuring 3.1 x 4.8 x 5.1 cm (AP x transverse x craniocaudal) with associated mild to moderate mass effect on the adjacent cerebellum and brain which likely represents an arachnoid cyst. Boo cisterna magna is another consideration. 4. Minimal chronic small vessel ischemic changes. 5. Mild generalized cerebral volume loss. RPTAT: HFN .Elver Cantu MD, MD Date Time Electronically viewed and signed by .Elver Cantu MD, MD on 02/08/2018 23:45 PROCEDURE: MRA Brain. CLINICAL INDICATION: Left-sided weakness. Neurological deficit, dizziness. TECHNIQUE: An MRA of the brain was performed with and without intravenous contrast utilizing the following sequences: 3-D eocr-iq-sqldic images through the intracranial vasculature with post processed maximal intensity projections in multiple planes. Following the uneventful administration of 10 cc ProHance. Post processed and maximal intensity projections were obtained and all images were reviewed on a [employer] PACS system. COMPARISON: Brain CT 02/06/2018. FINDINGS: The petrous, cavernous, and supraclinoid internal carotid artery segments are normal in caliber without evidence of significant stenosis. The proximal anterior cerebral and middle cerebral arteries are patent without significant stenosis. There is predominant origin of right posterior cerebral artery with hypoplastic right P1 segment. The intradural vertebral arteries, basilar artery and posterior cerebral arteries are patent without evidence of significant focal stenosis. No aneurysms are identified. IMPRESSION: 1. Patent major intracranial arteries. RPTAT: HFN .Elver Cantu MD, Date Time Electronically viewed and signed by .Elver Cantu MD, MD on 02/08/2018 23:48 PROCEDURE: CT Brain without contrast. CLINICAL INDICATION: Stroke TECHNIQUE: CT scan of the brain was performed on a multidetector high- resolution CT scan. Axial imaging was obtained of the brain without contrast administration. Coronal and sagittal reformatted images were obtained from the axial source images. Standard CT scan of the head without contrast protocols were performed. The total exam CTDI equals 38.54 mGy and the total exam DLP equals 554.95 mGy- cm. One or more of the following dose reduction techniques were used: - Automated exposure control. - Adjustment of the mA and/or kV according to patient size. Use of iterative reconstruction technique. Dicom images are available COMPARISON: MR brain 09/11/[address] head 09/11/2014 FINDINGS: No change of the 6 x 5 x 3 cm retrocerebellar cystic mass consistent with an arachnoid cyst. No other intracranial masses. Ventricular system and peripheral CSF spaces are otherwise unremarkable and consistent with the patient's age. No evidence of intracranial hemorrhages. No midline shift. The hare-white matter differentiation is unremarkable. The bones of the calvarium are intact. Visualized paranasal sinuses and mastoids are unremarkable. IMPRESSION: 1. No significant change. 2. Again noted is a retrocerebellar arachnoid cyst. No other intracranial masses. 3. No evidence of intracranial hemorrhages. 4. No midline shift. Addendum: Dr. Fuller was telephoned this results on 02/06/2018 at 1215 hours. RPTAT:AAJJ Physician Lucita Date Time Electronically viewed and signed by Physician Lucita on 02/06/2018 12:22 PROCEDURE: XR Chest AP portable CLINICAL INDICATION: Stroke TECHNIQUE: An AP portable radiograph of the chest was submitted. COMPARISON: None. FINDINGS: Support Hardware: None Cardiovascular: The cardiovascular silhouette appears unremarkable. Lung Grullon: The lung grullon appear clear with no nodule, alveolar infiltrate, or interstitial prominence evident. Pleural Spaces: No pneumothorax or pleural effusion is identified. Osseous Structures: The osseous structures appear intact. Soft Tissues: The soft tissues appear generous. IMPRESSION: Unremarkable portable chest. Physician Kemi Date Time Electronically viewed and signed by Physician Kemi on 02/06/2018 12:41 PROCEDURE: US Carotids. CLINICAL INDICATION: Left-sided weakness. TECHNIQUE: Multiple sonographic of the carotid arteries were obtained utilizing hare scale imaging. Color and Doppler imaging was performed. The images were reviewed on a PACS workstation. COMPARISON: No prior studies are available for comparison. FINDINGS: Location Right Left CCA 54 cm/sec 65 cm/sec Prox ICA 43 cm/sec 79 cm/sec Mid ICA 33 cm/sec 43 cm/sec Dist ICA 45 cm/sec 39 cm/sec ICA/CCA 0.8 1.2 Antegrade flow is seen within the vertebral arteries bilaterally. There is no significant plaque within the carotid system. No evidence for hemodynamically significant stenosis or occlusion is identified. IMPRESSION: 1. No evidence for hemodynamically significant stenosis or occlusion. 2. Antegrade flow seen within the vertebral arteries bilaterally. Velocity criteria are extrapolated from diameter data as defined by the Society of Radiologists in Ultrasound Consensus Conference. Radiology 2003; 229: 340- 346. This study does indirectly reference the measurement of the distal ICA diameter as the denominator for stenosis measurement. RPTAT: HHO .Kirsten Landaverde MD, MD Date Time Electronically viewed and signed by .Kirsten Landaverde MD, MD on 02/06/2018 20:07 Hx of Present Illness 52 yo M with PMH HTN and HLD presented to ED complaining of dizziness, left sided weakness and tingling from face to leg, nausea, and severe headache since yesterday at 7am. Patient states he ran out of his BP medication due to insurance and last took medications in March. Patient was evaluated in ED and CT scan was performed with no acute abnormalities. He was given medications for BP control but weakness did not resolve. Patient was still complaining of headache with dizziness and abdominal discomfort with associated nausea. Patient did admit to mild chest discomfort which was worse with deep inhalation. Admits to nonproductive cough. Denies any LOC, palpitations, constipation, diarrhea, or right sided weakness or tingling. Hospital Course Patient was admitted for acute stroke workup and neurology was consulted. Imaging studies were performed and revealed arachnoid cyst and ?aneurysm. Patient was started on Antivert for dizziness and antihypertensive for better BP control. Patient was instructed to monitor blood pressure and follow up with primary care for close monitoring. Patient was started on aspirin and statin. PT/OT evaluated patient and recommended FWW to assist with ambulation. 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 Patients presenting symptoms improved after better blood pressure control. On day of discharge patients vitals and physical exam were stable. patient was discharged home in stable condition. Home Meds Active Scripts Amlodipine Besylate* (Norvasc*) 5 Mg Tablet, 5 MG PO DAILY for 30 Days, #30 TAB 6 Refills Prov:MIKE GARVEY MD 02/10/18 Benazepril Hcl* (Benazepril Hcl*) 40 Mg Tablet, 40 MG PO DAILY for 30 Days, #30 TAB Prov:MIKE GARVEY MD 02/10/18 Meclizine Hcl* (Meclizine Hcl*) 25 Mg Tablet, 25 MG PO TID PRN for dizziness for 30 Days, #90 TAB 4 Refills Prov:MIKE GARVEY MD 02/10/18 [place]-3/Dha/Epa/Fish Oil (FISH OIL EC 1,000 MG SOFTGEL) 1 Each Capsule.dr, 2000 MG PO BID for 30 Days, #60 CAP 6 Refills Prov:MIKE GARVEY MD 02/10/18 Atorvastatin* (Atorvastatin*) 40 Mg Tablet, 40 MG PO HS for 30 Days, #30 TAB 6 Refills Prov:MIKE GARVEY MD 02/10/18 Tramadol HCl (Tramadol HCl) 50 Mg Tablet, 50 MG PO Q4 PRN for PAIN, #15 TAB Prov:KAREL CHAUDHARI MD 05/24/16 Polyethylene Glycol* (Miralax*) 17 Gm Powd.pack, 17 GM PO DAILY, #30 Prov:KAREL CHAUDHARI MD 05/24/16 Aspirin (Aspirin) 81 Mg Chew, 81 MG PO DAILY, #30 TAB.CHEW Prov:MELANY ALEMAN 09/13/14 Discontinued Scripts Benazepril Hcl* (Lotensin*) 20 Mg Tablet, 20 MG PO DAILY, #30 TAB Prov:KAREL CHAUDHARI MD 05/24/16 Lisinopril* (Zestril*) 10 Mg Tab, 10 MG PO DAILY, #30 3 Refills Prov:MELANY ALEMAN 09/13/14 Follow-up Plan 1. Follow up with your primary care physician in 1 week 2. Take Benazepril and Amlodipine daily as prescribed for blood pressure control 3. Take Antivert as needed when feeling dizzy 4. Follow low salt, low cholesterol, low carb diet 5. if symptoms return or worsen, please go to your closest emergency department 6. Continue monitoring blood pressure and if remains elevated >160 call your PCP or return to the emergency department 7. You will need to have your primary care physician follow you for the small outpouching vessel seen in your brain. This can be controlled with blood pressure control. Primary Care Provider Care Physician No Primary Time spent on discharge: > 30 minutes MIKE GARVEY MD Feb 10, 2018 16:47
--- NOTE | 2018-02-10 18:15 | NUR ---
Dc's hep lock.gave all the discharge instruction ,health summary as ordered.prescription already sent to the pharmacy.patient's daughter berna said''no need senior stereo compiler team lead ,i can translate for him''patient verbalized understanding.provided all information regarding the stroke prevention and smoking cessaation information also.patient verbalized understanding.he took his all the belongins .ask him to f/u with pmd in one week.ask him to go to [facility] if he does not have pmd.
--- NOTE | 2018-02-10 18:20 | NUR ---
patient refused to get wheel chair and left the floor with stable condition with daughter.
[2018-02-11] MEDS ORDERED: BENAZEPRIL 40 MG TAB PO SCH (09:00)
== END 2018-02-10 18:10 | disposition home or self-care (01) | DRG 305 ==
LOC: E/R 10:55 → 6WM 15:17 → PP2 02-10 01:18
PROVIDERS: ADMIT Internal Medicine; ATTEND Internal Medicine
DX: I16.1 Hypertensive emergency (principal); G81.94 Hemiplegia, unspecified affecting left nondominant side; E78.5 Hyperlipidemia, unspecified; R42 Dizziness and giddiness; G93.0 Cerebral cysts; Z72.0 Tobacco use
CPT/HCPCS: 36415; 70450; 70545; 70553; 71045; 80048; 80053; 80061; 80069; 80307; 81003; 83036; 83735; 84443; 84484; 85025; 85610; 85730; 93005; 93306; 93880; 97116; 97163; 97165; 97530; J0360; J1200; J1885; J7030